=== PATIENT | male | born 1970 | race Caucasian/White ===

== ENCOUNTER 2019-04-14 14:49 | Inpatient (IN) | payer BC ==
[2019-04-14] MEDS ORDERED: Sodium Chloride 0.9% 2.5 ML Syringe FLUSH PRN (15:15)
[2019-04-14] MEDS ORDERED: Sodium Chloride 0.9% 10 ML Syringe FLUSH PRN (15:15)
--- NOTE | 2019-04-14 15:30 | EDM.PDOC ---
ED HPI GENERAL MEDICAL PROBLEM - General Chief Complaint: Abdominal Pain Stated Complaint: SENT FROM [facility] Time Seen by Provider: 04/14/19 15:02 Source of Information: Reports: Patient History Limitations: Reports: No Limitations - History of Present Illness INITIAL COMMENTS - FREE TEXT/NARRATIVE: HISTORY AND PHYSICAL: History of present illness: Patient is a 58-year-old male who presents to the ED today from [facility] for concern of abdominal pain. [facility] provider did call and speak with nursing staff stating that they do an abdominal and pelvic CT scan without contrast but the radiologist has not interpreted yet but they're afraid for liver failure as the liver looked enlarged to them on the image. Patient states he has been constipation and had abdominal pain 10 days. Patient states he's taken over the counter medication for constipation without relief of symptoms. Patient states his stomach feels more "bloated" and is hard and the skin feels as if its "sunburned". Patient states he also is not able to lean back because he feels short of breath if he does so. Patient states he does drink alcohol on occasion but over the past 2 weeks has not had anything to drink. Patient states he has been having watery diarrhea for 3 days after treating for constipation. Patient denies any other symptoms or concerns. Patient denies fever, chills, chest pain, shortness of breath, or cough. Denies headache, neck stiff ness, change in vision, syncope, or near syncope. Denies nausea, vomiting, or dysuria. Has not noted any blood in urine or stool. Patient has been eating and drinking appropriately. Review of systems: As per history of present illness and below otherwise all systems reviewed and negative. Past medical history: As per history of present illness and as reviewed below otherwise noncontributory. Surgical history: As per history of present illness and as reviewed below otherwise noncontributory. Social history: See social history for further information Family history: As per history of present illness and as reviewed below otherwise noncontributory. Physical exam: Physical exam is limited due to body habitus. General: Patient is alert, oriented, and in no acute distress. Patient sitting comfortably on exam table. HEENT: Atraumatic, normocephalic, pupils equal and reactive bilaterally, negative for conjunctival pallor or scleral icterus, mucous membranes moist, TMs normal bilaterally, throat clear, neck supple, nontender, trachea midline. No drooling or trismus noted. No meningeal signs. No hot potato voice noted. Lungs: Clear to auscultation, breath sounds equal bilaterally, chest nontender. Heart: S1S2, regular rate and rhythm without overt murmur Abdomen: Obese, firm, distended, nontender. The skin overlying the abdomen is erythematous/pinkish in color with 2+ pitting edema of the abdomen. Negative for costovertebral tenderness. Patient short of breath with laying back. Pelvis: Stable nontender. Genitourinary: Deferred. Rectal: Deferred. Skin: Intact, warm, dry. No lesions or rashes noted. Extremities: Atraumatic, negative for cords or calf pain. Neurovascular unremarkable. 3+ bilateral pitting edema to the knees of the lower extremity. Neuro: Awake, alert, oriented. Cranial nerves II through XII unremarkable. Cerebellum unremarkable. Motor and sensory unremarkable throughout. Exam nonfocal. Notes: Dr. Padilla was consulted on patient and will admit to observation. Voices understanding and is agreeable to plan of care. Denies any further questions or concerns at this time. Diagnostics: CBC, CMP, UA, lipase, EKG, chest x-ray, troponin, BNP, ammonia, PT/INR, amylase , stool culture, cdiff, ova and parasite (Report from [facility] for abdominal and pelvic CT shows hepatomegaly, and a small right pleural effusion, small amount of ascites, and generalized anasarca. Otherwise no acute abnormalities) Therapeutics: Saline lock, Lasix Impression: Congestive Heart Failure, new onset Plan: 1. Admit to observation to Dr. Padilla. Definitive disposition and diagnosis as appropriate pending reevaluation and review of above. - Related Data Allergies Allergy/AdvReac Type Severity Reaction Status Date / Time No Known Allergies Allergy Verified 04/14/19 15:08 Home Meds: Home Meds . [No Known Home Meds] 04/14/19 [History] Past Medical History Endocrine/Metabolic History: Reports: Obesity/BMI 30+ Social & Family History - Family History Family Medical History: Noncontributory - Tobacco Use Smoking Status *Q: Current Every Day Smoker Years of Tobacco use: 25 Packs/Tins Daily: 1 - Recreational Drug Use Recreational Drug Use: No ED ROS GENERAL - Review of Systems Review Of Systems: ROS reveals no pertinent complaints other than HPI. ED EXAM, GENERAL - Physical Exam Exam: See Below (See dictation) Course - Vital Signs Last Recorded V/S: Last Vital Signs Temp 96.9 F 04/14/19 16:37 Pulse 91 04/14/19 16:37 Resp 20 04/14/19 16:37 BP 156/97 H 04/14/19 16:37 Pulse Ox 89 L 04/14/19 16:37 - Orders/Labs/Meds Orders: Active Orders 24 hr Category Date Time Status Admission Status [Patient Status] [ADT] Stat ADT 04/14/19 18:08 Active EKG Documentation Completion [RC] STAT Care 04/14/19 15:21 Active Oxygen Therapy, ED [RC] ASDIRECTED Care 04/14/19 16:36 Active CDIFF TOX A+B [OP] Stat Lab 04/14/19 15:33 Ordered CULTURE STOOL + CAMPY+SHIGATOX [RM] Stat Lab 04/14/19 15:33 Ordered OVA & PARASITES BY IMMUNOASSAY [MREF] Stat Lab 04/14/19 15:33 Ordered Sodium Chloride 0.9% [Saline Flush] Med 04/14/19 15:15 Active 10 ml FLUSH ASDIRECTED PRN Sodium Chloride 0.9% [Saline Flush] Med 04/14/19 15:15 Active 2.5 ml FLUSH ASDIRECTED PRN Isolation [COMM] Stat Oth 04/14/19 15:33 Ordered Saline Lock Insert [OM.PC] Stat Oth 04/14/19 15:15 Ordered Medication Orders Sodium Chloride (Saline Flush) 10 ml FLUSH ASDIRECTED PRN PRN Reason: Keep Vein Open Sodium Chloride (Saline Flush) 2.5 ml FLUSH ASDIRECTED PRN PRN Reason: Keep Vein Open Labs: Laboratory Tests 04/14/19 04/14/19 04/14/19 Range/Units 15:20 15:20 15:20 WBC 7.48 (4.0-11.0) K/uL RBC 5.23 (4.50-5.90) M/uL Hgb 15.0 (13.0-17.0) g/dL Hct 47.5 (38.0-50.0) % MCV 90.8 (80.0-98.0) fL MCH 28.7 (27.0-32.0) pg MCHC 31.6 (31.0-37.0) g/dL RDW Std Deviation 51.2 (28.0-62.0) fl RDW Coeff of Bossman 15 (11.0-15.0) % Plt Count 194 (150-400) K/uL MPV 10.00 (7.40-12.00) fL Neut % (Auto) 74.9 (48.0-80.0) % Lymph % (Auto) 15.2 L (16.0-40.0) % Eddy % (Auto) 8.3 (0.0-15.0) % Eos % (Auto) 1.2 (0.0-7.0) % Baso % (Auto) 0.4 (0.0-1.5) % Neut # (Auto) 5.6 (1.4-5.7) K/uL Lymph # (Auto) 1.1 (0.6-2.4) K/uL Eddy # (Auto) 0.6 (0.0-0.8) K/uL Eos # (Auto) 0.1 (0.0-0.7) K/uL Baso # (Auto) 0.0 (0.0-0.1) K/uL Nucleated RBC % 0.0 /100WBC Nucleated RBCs # 0 K/uL INR 1.04 Sodium 143 (136-148) mmol/L Potassium 3.9 (3.5-5.1) mmol/L Chloride 102 (98-107) mmol/L Carbon Dioxide 33.8 H (21.0-32.0) mmol/L BUN 12 (7.0-18.0) mg/dL Creatinine 1.1 (0.8-1.3) mg/dL Est Cr Clr Drug Dosing 97.09 mL/min Estimated GFR (MDRD) > 60.0 ml/min Glucose 89 (74-106) mg/dL Calcium 8.4 L (8.5-10.1) mg/dL Total Bilirubin 0.5 (0.2-1.0) mg/dL AST 21 (15-37) IU/L ALT 21 (14-63) IU/L Alkaline Phosphatase 109 (46-116) U/L Ammonia (19-54) ug/dL Troponin I (0.000-0.056) ng/mL B-Natriuretic Peptide (<100) PG/ML Total Protein 6.6 (6.4-8.2) g/dL Albumin 3.1 L (3.4-5.0) g/dL Globulin 3.5 (2.6-4.0) g/dL Albumin/Globulin Ratio 0.9 (0.9-1.6) Amylase 25 (25-115) U/L Lipase 78 (73-393) U/L Urine Color Urine Appearance Urine pH (5.0-8.0) Ur Specific Central (1.001-1.035) Urine Protein (NEGATIVE) mg/dL Urine Glucose (UA) (NEGATIVE) mg/dL Urine Ketones (NEGATIVE) mg/dL Urine Occult Blood (NEGATIVE) Urine Nitrite (NEGATIVE) Urine Bilirubin (NEGATIVE) Urine Urobilinogen (<2.0) EU/dL Ur Leukocyte Esterase (NEGATIVE) Urine RBC (0-2/HPF) Urine WBC (0-5/HPF) Ur Epithelial Cells (NONE-FEW) Urine Bacteria (NEGATIVE) 04/14/19 04/14/19 04/14/19 Range/Units 15:20 15:20 15:20 WBC (4.0-11.0) K/uL RBC (4.50-5.90) M/uL Hgb (13.0-17.0) g/dL Hct (38.0-50.0) % MCV (80.0-98.0) fL MCH (27.0-32.0) pg MCHC (31.0-37.0) g/dL RDW Std Deviation (28.0-62.0) fl RDW Coeff of Bossman (11.0-15.0) % Plt Count (150-400) K/uL MPV (7.40-12.00) fL Neut % (Auto) (48.0-80.0) % Lymph % (Auto) (16.0-40.0) % Eddy % (Auto) (0.0-15.0) % Eos % (Auto) (0.0-7.0) % Baso % (Auto) (0.0-1.5) % Neut # (Auto) (1.4-5.7) K/uL Lymph # (Auto) (0.6-2.4) K/uL Eddy # (Auto) (0.0-0.8) K/uL Eos # (Auto) (0.0-0.7) K/uL Baso # (Auto) (0.0-0.1) K/uL Nucleated RBC % /100WBC Nucleated RBCs # K/uL INR Sodium (136-148) mmol/L Potassium (3.5-5.1) mmol/L Chloride (98-107) mmol/L Carbon Dioxide (21.0-32.0) mmol/L BUN (7.0-18.0) mg/dL Creatinine (0.8-1.3) mg/dL Est Cr Clr Drug Dosing mL/min Estimated GFR (MDRD) ml/min Glucose (74-106) mg/dL Calcium (8.5-10.1) mg/dL Total Bilirubin (0.2-1.0) mg/dL AST (15-37) IU/L ALT (14-63) IU/L Alkaline Phosphatase (46-116) U/L Ammonia 43 (19-54) ug/dL Troponin I < 0.050 (0.000-0.056) ng/mL B-Natriuretic Peptide 488 H (<100) PG/ML Total Protein (6.4-8.2) g/dL Albumin (3.4-5.0) g/dL Globulin (2.6-4.0) g/dL Albumin/Globulin Ratio (0.9-1.6) Amylase (25-115) U/L Lipase (73-393) U/L Urine Color Urine Appearance Urine pH (5.0-8.0) Ur Specific Central (1.001-1.035) Urine Protein (NEGATIVE) mg/dL Urine Glucose (UA) (NEGATIVE) mg/dL Urine Ketones (NEGATIVE) mg/dL Urine Occult Blood (NEGATIVE) Urine Nitrite (NEGATIVE) Urine Bilirubin (NEGATIVE) Urine Urobilinogen (<2.0) EU/dL Ur Leukocyte Esterase (NEGATIVE) Urine RBC (0-2/HPF) Urine WBC (0-5/HPF) Ur Epithelial Cells (NONE-FEW) Urine Bacteria (NEGATIVE) 04/14/19 Range/Units 16:51 WBC (4.0-11.0) K/uL RBC (4.50-5.90) M/uL Hgb (13.0-17.0) g/dL Hct (38.0-50.0) % MCV (80.0-98.0) fL MCH (27.0-32.0) pg MCHC (31.0-37.0) g/dL RDW Std Deviation (28.0-62.0) fl RDW Coeff of Bossman (11.0-15.0) % Plt Count (150-400) K/uL MPV (7.40-12.00) fL Neut % (Auto) (48.0-80.0) % Lymph % (Auto) (16.0-40.0) % Eddy % (Auto) (0.0-15.0) % Eos % (Auto) (0.0-7.0) % Baso % (Auto) (0.0-1.5) % Neut # (Auto) (1.4-5.7) K/uL Lymph # (Auto) (0.6-2.4) K/uL Eddy # (Auto) (0.0-0.8) K/uL Eos # (Auto) (0.0-0.7) K/uL Baso # (Auto) (0.0-0.1) K/uL Nucleated RBC % /100WBC Nucleated RBCs # K/uL INR Sodium (136-148) mmol/L Potassium (3.5-5.1) mmol/L Chloride (98-107) mmol/L Carbon Dioxide (21.0-32.0) mmol/L BUN (7.0-18.0) mg/dL Creatinine (0.8-1.3) mg/dL Est Cr Clr Drug Dosing mL/min Estimated GFR (MDRD) ml/min Glucose (74-106) mg/dL Calcium (8.5-10.1) mg/dL Total Bilirubin (0.2-1.0) mg/dL AST (15-37) IU/L ALT (14-63) IU/L Alkaline Phosphatase (46-116) U/L Ammonia (19-54) ug/dL Troponin I (0.000-0.056) ng/mL B-Natriuretic Peptide (<100) PG/ML Total Protein (6.4-8.2) g/dL Albumin (3.4-5.0) g/dL Globulin (2.6-4.0) g/dL Albumin/Globulin Ratio (0.9-1.6) Amylase (25-115) U/L Lipase (73-393) U/L Urine Color YELLOW Urine Appearance CLEAR Urine pH 7.5 (5.0-8.0) Ur Specific Central 1.010 (1.001-1.035) Urine Protein 30 H (NEGATIVE) mg/dL Urine Glucose (UA) NEGATIVE (NEGATIVE) mg/dL Urine Ketones NEGATIVE (NEGATIVE) mg/dL Urine Occult Blood NEGATIVE (NEGATIVE) Urine Nitrite NEGATIVE (NEGATIVE) Urine Bilirubin NEGATIVE (NEGATIVE) Urine Urobilinogen 1.0 (<2.0) EU/dL Ur Leukocyte Esterase NEGATIVE (NEGATIVE) Urine RBC 0-1 (0-2/HPF) Urine WBC 0-2 (0-5/HPF) Ur Epithelial Cells RARE (NONE-FEW) Urine Bacteria RARE (NEGATIVE) Meds: Medications Generic Name Dose Route Start Last Admin Trade Name Freq PRN Reason Stop Dose Admin Sodium Chloride 10 ml 04/14/19 15:15 Saline Flush FLUSH ASDIRECTED PRN Keep Vein Open Sodium Chloride 2.5 ml 04/14/19 15:15 Saline Flush FLUSH ASDIRECTED PRN Keep Vein Open Discontinued Medications Generic Name Dose Route Start Last Admin Trade Name Freq PRN Reason Stop Dose Admin Furosemide 40 mg 04/14/19 16:27 04/14/19 16:43 Lasix IVPUSH 04/14/19 16:28 40 mg NOW ONE Administration Departure - Departure Time of Disposition: 18:09 Disposition: Admitted As Inpatient 65 Clinical Impression: New onset of congestive heart failure - Discharge Information Referrals: PCP,Unknown [Primary Care Provider] - Forms: ED Department Discharge - My Orders Last 24 Hours: My Active Orders 04/14/19 15:15 Sodium Chloride 0.9% [Saline Flush] 10 ml FLUSH ASDIRECTED PRN Sodium Chloride 0.9% [Saline Flush] 2.5 ml FLUSH ASDIRECTED PRN Saline Lock Insert [OM.PC] Stat 04/14/19 15:21 EKG Documentation Completion [RC] STAT 04/14/19 15:33 CDIFF TOX A+B [OP] Stat CULTURE STOOL + CAMPY+SHIGATOX [RM] Stat OVA & PARASITES BY IMMUNOASSAY [MREF] Stat Isolation [COMM] Stat 04/14/19 16:36 Oxygen Therapy, ED [RC] ASDIRECTED 04/14/19 18:08 Admission Status [Patient Status] [ADT] Stat - Assessment/Plan Last 24 Hours: My Active Orders 04/14/19 15:15 Sodium Chloride 0.9% [Saline Flush] 10 ml FLUSH ASDIRECTED PRN Sodium Chloride 0.9% [Saline Flush] 2.5 ml FLUSH ASDIRECTED PRN Saline Lock Insert [OM.PC] Stat 04/14/19 15:21 EKG Documentation Completion [RC] STAT 04/14/19 15:33 CDIFF TOX A+B [OP] Stat CULTURE STOOL + CAMPY+SHIGATOX [RM] Stat OVA & PARASITES BY IMMUNOASSAY [MREF] Stat Isolation [COMM] Stat 04/14/19 16:36 Oxygen Therapy, ED [] ASDIRECTED 04/14/19 18:08 Admission Status [Patient Status] [ADT] Stat
[2019-04-14 16:06] LABS: BLOOD UREA NITROGEN,BUN 12 mg/dL (7.0-18.0); CARBON DIOXIDE,CO2 33.8 mmol/L (21.0-32.0); CHLORIDE,CL 102 mmol/L (98-107); GLUCOSE RANDOM 89 mg/dL (74-106); LIPASE 78 U/L (73-393); POTASSIUM,K 3.9 mmol/L (3.5-5.1); SODIUM,NA 143 mmol/L (136-148)
[2019-04-14] MEDS ORDERED: Furosemide 40 MG/4 ML VIAL IVPUSH ONE (16:27)
--- NOTE | 2019-04-14 17:00 | CR ---
Chest: Portable view of the chest was obtained. Comparison: No previous chest x-ray. Heart size is somewhat enlarged. Pulmonary vessels are felt to be congested. Bony structures are unremarkable. Impression: Findings suspicious for early CHF. Diagnostic code #3 MTDD
[2019-04-14] MEDS ORDERED: Albuterol/Ipratropium 3.0-0.5 MG/3 ML Neb Soln NEB PRN (18:21)
[2019-04-14] MEDS ORDERED: Metoprolol Succinate 50 MG Tab.ER PO SCH (18:45)
--- NOTE | 2019-04-14 18:48 | PCM.HP.2 ---
H&P History of Present Illness - General Date of Service: 04/14/19 Admit Problem/Dx: Admission Diagnosis/Problem Admission Diagnosis/Problem Congestive heart failure Source of Information: Patient - History of Present Illness Initial Comments - Free Text/Narative: Patient is a 58-year-old male with no known PMH who presents to the ED today from [facility] for concern of abdominal pain. Patient had gotten Abdominal CT done in clinic but the final report was pending. Patient was sent to ER for further assessment due to concern of possible "liver failure". Patient states he has been constipation and had abdominal distension 10 days. Patient took OTC stool softeners for constipation with some relief of symptoms. Patient states his stomach feels more "bloated" and that he has gained 10lbs in last 2 weeks. patient also feel THOMAS and Orthopnea and his belly feel really tense and hard but no acute pain. Denied alcohol abuse, no drug abuse. Does smoke 1PPD. CXR was obtained which showed Volume overload. BP was elevated in 170s in ER. EKG didn't show as St or T wave changes. 1st set of Trops was negative. Patient denied chest pain, dizziness, N/V, fever, chills, urinary symptoms, Focal neurological deficits. Patient is being admitted for further management. Onset of Symptoms: Reports: Gradual Duration of Symptoms: Reports: Week(s): Location: Reports: Abdomen - Related Data Allergies/Adverse Reactions: Allergies Allergy/AdvReac Type Severity Reaction Status Date / Time cat dander Allergy Mild Rash Verified 04/14/19 19:40 horse dander Allergy Mild Rash Verified 04/14/19 19:40 Home Medications: Home Meds . [No Known Home Meds] 04/14/19 [History] Past Medical History Endocrine/Metabolic History: Reports: Obesity/BMI 30+ Social & Family History - Family History Family Medical History: Noncontributory - Tobacco Use Smoking Status *Q: Current Every Day Smoker Years of Tobacco use: 25 Packs/Tins Daily: 1 - Recreational Drug Use Recreational Drug Use: No H&P Review of Systems - Review of Systems: Review Of Systems: ROS reveals no pertinent complaints other than HPI. Exam - Exam Exam: See Below - Vital Signs Vital Signs: Last Vital Signs Temp 35.9 C 04/14/19 18:24 Pulse 95 04/14/19 18:24 Resp 20 04/14/19 18:24 BP 154/97 H 04/14/19 18:24 Pulse Ox 93 L 04/14/19 18:24 Weight: 176.901 kg - Exam Quality Assessment: Supplemental Oxygen General: Alert, Oriented, Cooperative HEENT: Conjunctiva Clear Neck: Supple, Trachea Midline Lungs: Decreased Breath Sounds, Crackles Cardiovascular: Regular Rate, Regular Rhythm, Normal S1, Normal S2 GI/Abdominal Exam: Distended, Abnormal Bowel Sounds. No: Normal Bowel Sounds, Soft, Rebound, Tender Extremities: Pedal Edema Peripheral Pulses: 3+: Dorsalis Pedis (L), Dorsalis Pedis (R) - Patient Data Lab Results Last 24 hrs: Laboratory Results - last 24 hr 04/14/19 04/14/19 04/14/19 Range/Units 15:20 15:20 15:20 WBC 7.48 (4.0-11.0) K/uL RBC 5.23 (4.50-5.90) M/uL Hgb 15.0 (13.0-17.0) g/dL Hct 47.5 (38.0-50.0) % MCV 90.8 (80.0-98.0) fL MCH 28.7 (27.0-32.0) pg MCHC 31.6 (31.0-37.0) g/dL RDW Std Deviation 51.2 (28.0-62.0) fl RDW Coeff of [place] 15 (11.0-15.0) % Plt Count 194 (150-400) K/uL MPV 10.00 (7.40-12.00) fL Neut % (Auto) 74.9 (48.0-80.0) % Lymph % (Auto) 15.2 L (16.0-40.0) % [place] % (Auto) 8.3 (0.0-15.0) % Eos % (Auto) 1.2 (0.0-7.0) % Baso % (Auto) 0.4 (0.0-1.5) % Neut # (Auto) 5.6 (1.4-5.7) K/uL Lymph # (Auto) 1.1 (0.6-2.4) K/uL [place] # (Auto) 0.6 (0.0-0.8) K/uL Eos # (Auto) 0.1 (0.0-0.7) K/uL Baso # (Auto) 0.0 (0.0-0.1) K/uL Nucleated RBC % 0.0 /100WBC Nucleated RBCs # 0 K/uL INR 1.04 Sodium 143 (136-148) mmol/L Potassium 3.9 (3.5-5.1) mmol/L Chloride 102 (98-107) mmol/L Carbon Dioxide 33.8 H (21.0-32.0) mmol/L BUN 12 (7.0-18.0) mg/dL Creatinine 1.1 (0.8-1.3) mg/dL Est Cr Clr Drug Dosing 97.09 mL/min Estimated GFR (MDRD) > 60.0 ml/min Glucose 89 (74-106) mg/dL Calcium 8.4 L (8.5-10.1) mg/dL Total Bilirubin 0.5 (0.2-1.0) mg/dL AST 21 (15-37) IU/L ALT 21 (14-63) IU/L Alkaline Phosphatase 109 (46-116) U/L Ammonia (19-54) ug/dL Troponin I (0.000-0.056) ng/mL B-Natriuretic Peptide (<100) PG/ML Total Protein 6.6 (6.4-8.2) g/dL Albumin 3.1 L (3.4-5.0) g/dL Globulin 3.5 (2.6-4.0) g/dL Albumin/Globulin Ratio 0.9 (0.9-1.6) Amylase 25 (25-115) U/L Lipase 78 (73-393) U/L Urine Color Urine Appearance Urine pH (5.0-8.0) Ur Specific [place] (1.001-1.035) Urine Protein (NEGATIVE) mg/dL Urine Glucose (UA) (NEGATIVE) mg/dL Urine Ketones (NEGATIVE) mg/dL Urine Occult Blood (NEGATIVE) Urine Nitrite (NEGATIVE) Urine Bilirubin (NEGATIVE) Urine Urobilinogen (<2.0) EU/dL Ur Leukocyte Esterase (NEGATIVE) Urine RBC (0-2/HPF) Urine WBC (0-5/HPF) Ur Epithelial Cells (NONE-FEW) Urine Bacteria (NEGATIVE) 04/14/19 04/14/19 04/14/19 Range/Units 15:20 15:20 15:20 WBC (4.0-11.0) K/uL RBC (4.50-5.90) M/uL Hgb (13.0-17.0) g/dL Hct (38.0-50.0) % MCV (80.0-98.0) fL MCH (27.0-32.0) pg MCHC (31.0-37.0) g/dL RDW Std Deviation (28.0-62.0) fl RDW Coeff of [place] (11.0-15.0) % Plt Count (150-400) K/uL MPV (7.40-12.00) fL Neut % (Auto) (48.0-80.0) % Lymph % (Auto) (16.0-40.0) % [place] % (Auto) (0.0-15.0) % Eos % (Auto) (0.0-7.0) % Baso % (Auto) (0.0-1.5) % Neut # (Auto) (1.4-5.7) K/uL Lymph # (Auto) (0.6-2.4) K/uL [place] # (Auto) (0.0-0.8) K/uL Eos # (Auto) (0.0-0.7) K/uL Baso # (Auto) (0.0-0.1) K/uL Nucleated RBC % /100WBC Nucleated RBCs # K/uL INR Sodium (136-148) mmol/L Potassium (3.5-5.1) mmol/L Chloride (98-107) mmol/L Carbon Dioxide (21.0-32.0) mmol/L BUN (7.0-18.0) mg/dL Creatinine (0.8-1.3) mg/dL Est Cr Clr Drug Dosing mL/min Estimated GFR (MDRD) ml/min Glucose (74-106) mg/dL Calcium (8.5-10.1) mg/dL Total Bilirubin (0.2-1.0) mg/dL AST (15-37) IU/L ALT (14-63) IU/L Alkaline Phosphatase (46-116) U/L Ammonia 43 (19-54) ug/dL Troponin I < 0.050 (0.000-0.056) ng/mL B-Natriuretic Peptide 488 H (<100) PG/ML Total Protein (6.4-8.2) g/dL Albumin (3.4-5.0) g/dL Globulin (2.6-4.0) g/dL Albumin/Globulin Ratio (0.9-1.6) Amylase (25-115) U/L Lipase (73-393) U/L Urine Color Urine Appearance Urine pH (5.0-8.0) Ur Specific [place] (1.001-1.035) Urine Protein (NEGATIVE) mg/dL Urine Glucose (UA) (NEGATIVE) mg/dL Urine Ketones (NEGATIVE) mg/dL Urine Occult Blood (NEGATIVE) Urine Nitrite (NEGATIVE) Urine Bilirubin (NEGATIVE) Urine Urobilinogen (<2.0) EU/dL Ur Leukocyte Esterase (NEGATIVE) Urine RBC (0-2/HPF) Urine WBC (0-5/HPF) Ur Epithelial Cells (NONE-FEW) Urine Bacteria (NEGATIVE) 04/14/19 Range/Units 16:51 WBC (4.0-11.0) K/uL RBC (4.50-5.90) M/uL Hgb (13.0-17.0) g/dL Hct (38.0-50.0) % MCV (80.0-98.0) fL MCH (27.0-32.0) pg MCHC (31.0-37.0) g/dL RDW Std Deviation (28.0-62.0) fl RDW Coeff of [place] (11.0-15.0) % Plt Count (150-400) K/uL MPV (7.40-12.00) fL Neut % (Auto) (48.0-80.0) % Lymph % (Auto) (16.0-40.0) % [place] % (Auto) (0.0-15.0) % Eos % (Auto) (0.0-7.0) % Baso % (Auto) (0.0-1.5) % Neut # (Auto) (1.4-5.7) K/uL Lymph # (Auto) (0.6-2.4) K/uL [place] # (Auto) (0.0-0.8) K/uL Eos # (Auto) (0.0-0.7) K/uL Baso # (Auto) (0.0-0.1) K/uL Nucleated RBC % /100WBC Nucleated RBCs # K/uL INR Sodium (136-148) mmol/L Potassium (3.5-5.1) mmol/L Chloride (98-107) mmol/L Carbon Dioxide (21.0-32.0) mmol/L BUN (7.0-18.0) mg/dL Creatinine (0.8-1.3) mg/dL Est Cr Clr Drug Dosing mL/min Estimated GFR (MDRD) ml/min Glucose (74-106) mg/dL Calcium (8.5-10.1) mg/dL Total Bilirubin (0.2-1.0) mg/dL AST (15-37) IU/L ALT (14-63) IU/L Alkaline Phosphatase (46-116) U/L Ammonia (19-54) ug/dL Troponin I (0.000-0.056) ng/mL B-Natriuretic Peptide (<100) PG/ML Total Protein (6.4-8.2) g/dL Albumin (3.4-5.0) g/dL Globulin (2.6-4.0) g/dL Albumin/Globulin Ratio (0.9-1.6) Amylase (25-115) U/L Lipase (73-393) U/L Urine Color YELLOW Urine Appearance CLEAR Urine pH 7.5 (5.0-8.0) Ur Specific [place] 1.010 (1.001-1.035) Urine Protein 30 H (NEGATIVE) mg/dL Urine Glucose (UA) NEGATIVE (NEGATIVE) mg/dL Urine Ketones NEGATIVE (NEGATIVE) mg/dL Urine Occult Blood NEGATIVE (NEGATIVE) Urine Nitrite NEGATIVE (NEGATIVE) Urine Bilirubin NEGATIVE (NEGATIVE) Urine Urobilinogen 1.0 (<2.0) EU/dL Ur Leukocyte Esterase NEGATIVE (NEGATIVE) Urine RBC 0-1 (0-2/HPF) Urine WBC 0-2 (0-5/HPF) Ur Epithelial Cells RARE (NONE-FEW) Urine Bacteria RARE (NEGATIVE) Result Diagrams: 04/14/19 15:20 04/14/19 15:20 *Q Meaningful Use (ADM) - VTE Risk Assess *Q Each Risk Factor Represents 1 Point: Age 41 - 59 years, Congestive heart failure (CHF) Total Score 1 Point Risk Factors: 2 - Problem List (1) Volume overload SNOMED Code(s): 82729315 ICD Code: E87.70 - FLUID OVERLOAD, UNSPECIFIED Status: Acute Current Visit: Yes (2) HTN (hypertension) SNOMED Code(s): 45108229 ICD Code: I10 - ESSENTIAL (PRIMARY) HYPERTENSION Status: Acute Current Visit: Yes Problem List Initiated/Reviewed/Updated: Yes Orders Last 24hrs: Active Orders 24 hr Category Date Time Status Admission Status [Patient Status] [ADT] Stat ADT 04/14/19 18:08 Active Ambulate [RC] ASDIRECTED Care 04/14/19 18:21 Ordered Cardiac Education [RC] Click to Edit Care 04/14/19 18:41 Ordered EKG Documentation Completion [RC] STAT Care 04/14/19 15:21 Active Oxygen Therapy [RC] PRN Care 04/14/19 18:21 Ordered Oxygen Therapy, ED [RC] ASDIRECTED Care 04/14/19 16:36 Active RT Aerosol Therapy [RC] ASDIRECTED Care 04/14/19 18:24 Ordered VTE/DVT Education [RC] PER UNIT ROUTINE Care 04/14/19 18:21 Ordered Vital Signs [RC] Q4H Care 04/14/19 18:21 Ordered Consult to Nail Feeder [CONS] Routine Cons 04/14/19 18:21 Ordered Heart Healthy Diet [DIET] Diet 04/14/19 Dinner Ordered Echo 2D wo Cont [US] Urgent Exams 04/14/19 18:30 Ordered B-TYPE NATRIURETIC PEPTIDE,BNP [CHEM] AM Lab 04/15/19 05:11 Ordered CDIFF TOX A+B [OP] Stat Lab 04/14/19 15:33 Ordered CULTURE STOOL + CAMPY+SHIGATOX [RM] Stat Lab 04/14/19 15:33 Ordered GLYCOSYLATED HEMOGLOBIN,HGBA1C [CHEM] AM Lab 04/15/19 05:11 Ordered INR,PT,PROTHROMBIN TIME [COAG] AM Lab 04/15/19 05:11 Ordered LIPID PANEL [CHEM] AM Lab 04/15/19 05:11 Ordered MAGNESIUM [CHEM] Routine Lab 04/15/19 05:11 Ordered OVA & PARASITES BY IMMUNOASSAY [MREF] Stat Lab 04/14/19 15:33 Ordered TROPONIN I [CHEM] Routine Lab 04/14/19 18:41 Ordered TROPONIN I [CHEM] Routine Lab 04/14/19 22:00 Ordered TSH [CHEM] Stat Lab 04/14/19 18:38 Ordered Albuterol/Ipratropium [DuoNeb 3.0-0.5 MG/3 ML] Med 04/14/19 18:21 Active 3 ml NEB Q4HRRT PRN Aspirin Med 04/14/19 21:00 Ordered 81 mg PO BEDTIME Furosemide [Lasix] Med 04/15/19 01:00 Active 40 mg IVPUSH TID Heparin Sodium Med 04/14/19 18:30 Active 5,000 units SUBCUT Q8H Metoprolol Succinate [Toprol XL] Med 04/14/19 18:45 Ordered 50 mg PO DAILY Sodium Chloride 0.9% [Saline Flush] Med 04/14/19 15:15 Active 10 ml FLUSH ASDIRECTED PRN Sodium Chloride 0.9% [Saline Flush] Med 04/14/19 15:15 Active 2.5 ml FLUSH ASDIRECTED PRN atorvaSTATin [Lipitor] Med 04/14/19 21:00 Ordered 40 mg PO BEDTIME Beta Igor Contraindications [AST] Click To Edit Oth 04/14/19 18:41 Ordered Isolation [COMM] Stat Oth 04/14/19 15:33 Ordered Saline Lock Insert [OM.PC] Stat Oth 04/14/19 15:15 Ordered Resuscitation Status Routine Resus Stat 04/14/19 18:21 Ordered Medication Orders Albuterol/Ipratropium (Duoneb 3.0-0.5 Mg/3 Ml) 3 ml NEB Q4HRRT PRN PRN Reason: Shortness Of Breath/wheezing Aspirin (Aspirin) 81 mg PO BEDTIME RICARDO Atorvastatin Calcium (Lipitor) 40 mg PO BEDTIME RICARDO Furosemide (Lasix) 40 mg IVPUSH TID RICARDO Heparin Sodium (Porcine) (Heparin Sodium) 5,000 units SUBCUT Q8H RICARDO Metoprolol Succinate (Toprol Xl) 50 mg PO DAILY RICARDO Sodium Chloride (Saline Flush) 10 ml FLUSH ASDIRECTED PRN PRN Reason: Keep Vein Open Sodium Chloride (Saline Flush) 2.5 ml FLUSH ASDIRECTED PRN PRN Reason: Keep Vein Open Assessment/Plan Comment:: Patient came in with c/o generalized swelling, weight gain, orthopnea Was sent over from a local clinic due to concern of "liver failure" due to his distended abdomen Patients EKG didn't show any ST or T wave changes 1st Trop was negative LFTs normal CXR was significant for volume overload Patient is being admitted for volume overload likely due to New-onset CHF Start IV Lasix 40 TID for aggressive diureses obtain 2D ECHO Obtain TSH, Lipid profile, HbA1c Monitor ins and out Fluid restriction to 1L Monitor and replete electrolytes as needed
[2019-04-14] MEDS: Heparin Sodium 5,000 Units/ML Vial SUBCUT SCH (20:09)
[2019-04-14] MEDS: Aspirin 81 MG Tab.Chew PO SCH (20:09)
[2019-04-14] MEDS: atorvaSTATin 40 MG Tab PO SCH (20:09)
[2019-04-14] MEDS ORDERED: Furosemide 40 MG/4 ML VIAL IVPUSH SCH (22:00)
[2019-04-15] MEDS: Heparin Sodium 5,000 Units/ML Vial SUBCUT SCH ×3 (01:32→21:39)
[2019-04-15] MEDS: Furosemide 40 MG/4 ML VIAL IVPUSH SCH ×4 (01:32→21:43)
[2019-04-15 04:47] LABS: HEMOGLOBIN A1C 6.1 % (4.5-6.2)
[2019-04-15 04:52] LABS: CARBON DIOXIDE,CO2 34.7 mmol/L (21.0-32.0); POTASSIUM,K 4.4 mmol/L (3.5-5.1)
--- NOTE | 2019-04-15 05:05 | CR ---
INDICATION: Shortness of breath, increased oxygen demand TECHNIQUE: Chest radiograph 1 view COMPARISON: None FINDINGS: Severe degradation of image quality noted due to body habitus. Mediastinum: The mediastinum is normal in appearance. Moderate cardiomegaly is noted. Lung: Perihilar ground-glass opacities are present with vascular congestion seen. No sign of pleural effusion seen. No pneumothorax is identified. Bone and Soft tissue: Unremarkable for age. IMPRESSIONS: 1. Perihilar ground-glass opacities are present with vascular congestion seen. Findings likely due to mild pulmonary edema. 2. Moderate cardiomegaly is noted. Dictated by Josue Almanzar MD @ 04/15/2019 5:03:58 AM Dictated by: Josue Almanzar MD @ 04/15/2019 05:04:01 (Electronically Signed)
--- NOTE | 2019-04-15 06:41 | PN ---
[facility] Physician - Brief Progress [id number]/15/2019 06:25[facility] [place], [place] - MWN (PAMELA) - JULIÁN LEOSADITI VARGASDate of Service 04/15/2019 06:25HPI/Event s of Note Chart reviewed. On camera, the patient is lying in bed in NAD, on face mask, no tachypnea, no accessory resptratory muscle use. Mr Vargas is a 48 yr old man presenting with abdominal pain and constipation to an outpatient clinic. CT was ordered and then pt trsf to [facility] with possible liver failure (subsequent labs shwoed normal liver function). In the ED, he was hypertensive SBP 170 s and further history revealed THOMAS and orthopnea, as well as LE edema - unclear duration, as well as increased abdominal girth and vince gain 10 lbs over the past 2 weeks. He was started on diuretics an d admitted to meds-surg floor. However overnight he appeared more dyspneic and was trsf to the ICU.PM H: no known chronic medical problems. He is obese and smokes.Investigations reviewed - pertinent: BMP bicarb 34.7, Cre 1.1 - 1.4. CBC unremarkable, LFTs unremarkable.BNP 488. Trop neg x2C dif neg, camp ylobacter neg.CxR: difficult to interpret due to body habitus. Mild pulmonary vascular congesiton, wi th possible small b/l pleural effusion (vs body habitus) on CxR from 04/15/19.A/P:1. Hypoxemic respir atory failure, likely due to new onset CHF with pulmonary edemaAggressive diuresis, while monitoring Cre and electrolytes.2DEcho in Am.Started on ASA, beta-susi, statin.Watch BP and watch for any sig n/symptoms of decompensation of CHF given new start of beta-susi.2. AKIFollow Cre and electrolytes .Would hold off on ACEinh or ARB for now until Cre stabilizes.3. HTNLikely has had chronic hypertensi on for some time, undiagnosed.Is on beta susi and Lasix.Follow BP and adjust antihypertensive gabby men accordingly.4. DiarrheaLikely due to stool softeners which he took for constipation.Monitor sympt oms.5. GI/DVT prophylaxis - is on Heparin SC.6. Smoker - strongly guidance counselor against smoking an offer boogie pport measures and emdications for smoking cessation.Interventions Major-Acute renal failure - evalua tion and management, Hypertension - evaluation and management, Respiratory failure - evaluation and m anagement, Other: CHF
--- NOTE | 2019-04-15 09:22 | PCM.PN ---
- General Info Date of Service: 04/15/19 - Review of Systems Systems Review Comment:: shortness of breath improving - Patient Data Vitals - Most Recent: Last Vital Signs Temp 37.4 C 04/15/19 08:00 Pulse 83 04/15/19 07:00 Resp 16 04/15/19 09:00 BP 132/64 04/15/19 09:00 Pulse Ox 94 L 04/15/19 09:00 Weight - Most Recent: 176.901 kg I&O - Last 24 Hours: Intake & Output 04/14/19 04/15/19 04/15/19 22:59 06:59 14:59 Intake Total 3000 Output Total 1075 Balance 1925 Lab Results Last 24 Hours: Laboratory Results - last 24 hr 04/14/19 04/14/19 04/14/19 Range/Units 15:20 15:20 15:20 WBC 7.48 (4.0-11.0) K/uL RBC 5.23 (4.50-5.90) M/uL Hgb 15.0 (13.0-17.0) g/dL Hct 47.5 (38.0-50.0) % MCV 90.8 (80.0-98.0) fL MCH 28.7 (27.0-32.0) pg MCHC 31.6 (31.0-37.0) g/dL RDW Std Deviation 51.2 (28.0-62.0) fl RDW Coeff of Bossman 15 (11.0-15.0) % Plt Count 194 (150-400) K/uL MPV 10.00 (7.40-12.00) fL Neut % (Auto) 74.9 (48.0-80.0) % Lymph % (Auto) 15.2 L (16.0-40.0) % Harlan % (Auto) 8.3 (0.0-15.0) % Eos % (Auto) 1.2 (0.0-7.0) % Baso % (Auto) 0.4 (0.0-1.5) % Neut # (Auto) 5.6 (1.4-5.7) K/uL Lymph # (Auto) 1.1 (0.6-2.4) K/uL Harlan # (Auto) 0.6 (0.0-0.8) K/uL Eos # (Auto) 0.1 (0.0-0.7) K/uL Baso # (Auto) 0.0 (0.0-0.1) K/uL Nucleated RBC % 0.0 /100WBC Nucleated RBCs # 0 K/uL INR 1.04 Sodium 143 (136-148) mmol/L Potassium 3.9 (3.5-5.1) mmol/L Chloride 102 (98-107) mmol/L Carbon Dioxide 33.8 H (21.0-32.0) mmol/L BUN 12 (7.0-18.0) mg/dL Creatinine 1.1 (0.8-1.3) mg/dL Est Cr Clr Drug Dosing 97.09 mL/min Estimated GFR (MDRD) > 60.0 ml/min Glucose 89 (74-106) mg/dL POC Glucose (60-110) mg/dL Hemoglobin A1c (4.5-6.2) % Calcium 8.4 L (8.5-10.1) mg/dL Phosphorus (2.6-4.7) mg/dL Magnesium (1.8-2.4) mg/dL Total Bilirubin 0.5 (0.2-1.0) mg/dL AST 21 (15-37) IU/L ALT 21 (14-63) IU/L Alkaline Phosphatase 109 (46-116) U/L Ammonia (19-54) ug/dL Troponin I (0.000-0.056) ng/mL B-Natriuretic Peptide (<100) PG/ML Total Protein 6.6 (6.4-8.2) g/dL Albumin 3.1 L (3.4-5.0) g/dL Globulin 3.5 (2.6-4.0) g/dL Albumin/Globulin Ratio 0.9 (0.9-1.6) Triglycerides (0-200) mg/dL Cholesterol (50-200) mg/dL LDL Cholesterol, Calc (60-180) mg/dL VLDL Cholesterol (5-55) mg/dL HDL Cholesterol (40-60) mg/dL Cholesterol/HDL Ratio (3.3-6.0) Amylase 25 (25-115) U/L Lipase 78 (73-393) U/L TSH 3rd Generation (0.36-3.74) uIU/mL Urine Color Urine Appearance Urine pH (5.0-8.0) Ur Specific [place] (1.001-1.035) Urine Protein (NEGATIVE) mg/dL Urine Glucose (UA) (NEGATIVE) mg/dL Urine Ketones (NEGATIVE) mg/dL Urine Occult Blood (NEGATIVE) Urine Nitrite (NEGATIVE) Urine Bilirubin (NEGATIVE) Urine Urobilinogen (<2.0) EU/dL Ur Leukocyte Esterase (NEGATIVE) Urine RBC (0-2/HPF) Urine WBC (0-5/HPF) Ur Epithelial Cells (NONE-FEW) Urine Bacteria (NEGATIVE) 04/14/19 04/14/19 04/14/19 Range/Units 15:20 15:20 15:20 WBC (4.0-11.0) K/uL RBC (4.50-5.90) M/uL Hgb (13.0-17.0) g/dL Hct (38.0-50.0) % MCV (80.0-98.0) fL MCH (27.0-32.0) pg MCHC (31.0-37.0) g/dL RDW Std Deviation (28.0-62.0) fl RDW Coeff of Bossman (11.0-15.0) % Plt Count (150-400) K/uL MPV (7.40-12.00) fL Neut % (Auto) (48.0-80.0) % Lymph % (Auto) (16.0-40.0) % [place] % (Auto) (0.0-15.0) % Eos % (Auto) (0.0-7.0) % Baso % (Auto) (0.0-1.5) % Neut # (Auto) (1.4-5.7) K/uL Lymph # (Auto) (0.6-2.4) K/uL [place] # (Auto) (0.0-0.8) K/uL Eos # (Auto) (0.0-0.7) K/uL Baso # (Auto) (0.0-0.1) K/uL Nucleated RBC % /100WBC Nucleated RBCs # K/uL INR Sodium (136-148) mmol/L Potassium (3.5-5.1) mmol/L Chloride (98-107) mmol/L Carbon Dioxide (21.0-32.0) mmol/L BUN (7.0-18.0) mg/dL Creatinine (0.8-1.3) mg/dL Est Cr Clr Drug Dosing mL/min Estimated GFR (MDRD) ml/min Glucose (74-106) mg/dL POC Glucose (60-110) mg/dL Hemoglobin A1c (4.5-6.2) % Calcium (8.5-10.1) mg/dL Phosphorus (2.6-4.7) mg/dL Magnesium (1.8-2.4) mg/dL Total Bilirubin (0.2-1.0) mg/dL AST (15-37) IU/L ALT (14-63) IU/L Alkaline Phosphatase (46-116) U/L Ammonia 43 (19-54) ug/dL Troponin I < 0.050 (0.000-0.056) ng/mL B-Natriuretic Peptide 488 H (<100) PG/ML Total Protein (6.4-8.2) g/dL Albumin (3.4-5.0) g/dL Globulin (2.6-4.0) g/dL Albumin/Globulin Ratio (0.9-1.6) Triglycerides (0-200) mg/dL Cholesterol (50-200) mg/dL LDL Cholesterol, Calc (60-180) mg/dL VLDL Cholesterol (5-55) mg/dL HDL Cholesterol (40-60) mg/dL Cholesterol/HDL Ratio (3.3-6.0) Amylase (25-115) U/L Lipase (73-393) U/L TSH 3rd Generation (0.36-3.74) uIU/mL Urine Color Urine Appearance Urine pH (5.0-8.0) Ur Specific [place] (1.001-1.035) Urine Protein (NEGATIVE) mg/dL Urine Glucose (UA) (NEGATIVE) mg/dL Urine Ketones (NEGATIVE) mg/dL Urine Occult Blood (NEGATIVE) Urine Nitrite (NEGATIVE) Urine Bilirubin (NEGATIVE) Urine Urobilinogen (<2.0) EU/dL Ur Leukocyte Esterase (NEGATIVE) Urine RBC (0-2/HPF) Urine WBC (0-5/HPF) Ur Epithelial Cells (NONE-FEW) Urine Bacteria (NEGATIVE) 04/14/19 04/14/19 04/14/19 Range/Units 15:20 16:51 19:38 WBC (4.0-11.0) K/uL RBC (4.50-5.90) M/uL Hgb (13.0-17.0) g/dL Hct (38.0-50.0) % MCV (80.0-98.0) fL MCH (27.0-32.0) pg MCHC (31.0-37.0) g/dL RDW Std Deviation (28.0-62.0) fl RDW Coeff of Bossman (11.0-15.0) % Plt Count (150-400) K/uL MPV (7.40-12.00) fL Neut % (Auto) (48.0-80.0) % Lymph % (Auto) (16.0-40.0) % [place] % (Auto) (0.0-15.0) % Eos % (Auto) (0.0-7.0) % Baso % (Auto) (0.0-1.5) % Neut # (Auto) (1.4-5.7) K/uL Lymph # (Auto) (0.6-2.4) K/uL [place] # (Auto) (0.0-0.8) K/uL Eos # (Auto) (0.0-0.7) K/uL Baso # (Auto) (0.0-0.1) K/uL Nucleated RBC % /100WBC Nucleated RBCs # K/uL INR Sodium (136-148) mmol/L Potassium (3.5-5.1) mmol/L Chloride (98-107) mmol/L Carbon Dioxide (21.0-32.0) mmol/L BUN (7.0-18.0) mg/dL Creatinine (0.8-1.3) mg/dL Est Cr Clr Drug Dosing mL/min Estimated GFR (MDRD) ml/min Glucose (74-106) mg/dL POC Glucose (60-110) mg/dL Hemoglobin A1c (4.5-6.2) % Calcium (8.5-10.1) mg/dL Phosphorus (2.6-4.7) mg/dL Magnesium (1.8-2.4) mg/dL Total Bilirubin (0.2-1.0) mg/dL AST (15-37) IU/L ALT (14-63) IU/L Alkaline Phosphatase (46-116) U/L Ammonia (19-54) ug/dL Troponin I < 0.050 (0.000-0.056) ng/mL B-Natriuretic Peptide (<100) PG/ML Total Protein (6.4-8.2) g/dL Albumin (3.4-5.0) g/dL Globulin (2.6-4.0) g/dL Albumin/Globulin Ratio (0.9-1.6) Triglycerides (0-200) mg/dL Cholesterol (50-200) mg/dL LDL Cholesterol, Calc (60-180) mg/dL VLDL Cholesterol (5-55) mg/dL HDL Cholesterol (40-60) mg/dL Cholesterol/HDL Ratio (3.3-6.0) Amylase (25-115) U/L Lipase (73-393) U/L TSH 3rd Generation 2.69 (0.36-3.74) uIU/mL Urine Color YELLOW Urine Appearance CLEAR Urine pH 7.5 (5.0-8.0) Ur Specific [place] 1.010 (1.001-1.035) Urine Protein 30 H (NEGATIVE) mg/dL Urine Glucose (UA) NEGATIVE (NEGATIVE) mg/dL Urine Ketones NEGATIVE (NEGATIVE) mg/dL Urine Occult Blood NEGATIVE (NEGATIVE) Urine Nitrite NEGATIVE (NEGATIVE) Urine Bilirubin NEGATIVE (NEGATIVE) Urine Urobilinogen 1.0 (<2.0) EU/dL Ur Leukocyte Esterase NEGATIVE (NEGATIVE) Urine RBC 0-1 (0-2/HPF) Urine WBC 0-2 (0-5/HPF) Ur Epithelial Cells RARE (NONE-FEW) Urine Bacteria RARE (NEGATIVE) 04/14/19 04/15/19 04/15/19 Range/Units 19:38 00:18 04:26 WBC (4.0-11.0) K/uL RBC (4.50-5.90) M/uL Hgb (13.0-17.0) g/dL Hct (38.0-50.0) % MCV (80.0-98.0) fL MCH (27.0-32.0) pg MCHC (31.0-37.0) g/dL RDW Std Deviation (28.0-62.0) fl RDW Coeff of Bossman (11.0-15.0) % Plt Count (150-400) K/uL MPV (7.40-12.00) fL Neut % (Auto) (48.0-80.0) % Lymph % (Auto) (16.0-40.0) % [place] % (Auto) (0.0-15.0) % Eos % (Auto) (0.0-7.0) % Baso % (Auto) (0.0-1.5) % Neut # (Auto) (1.4-5.7) K/uL Lymph # (Auto) (0.6-2.4) K/uL [place] # (Auto) (0.0-0.8) K/uL Eos # (Auto) (0.0-0.7) K/uL Baso # (Auto) (0.0-0.1) K/uL Nucleated RBC % /100WBC Nucleated RBCs # K/uL INR Sodium (136-148) mmol/L Potassium (3.5-5.1) mmol/L Chloride (98-107) mmol/L Carbon Dioxide (21.0-32.0) mmol/L BUN (7.0-18.0) mg/dL Creatinine (0.8-1.3) mg/dL Est Cr Clr Drug Dosing mL/min Estimated GFR (MDRD) ml/min Glucose (74-106) mg/dL POC Glucose (60-110) mg/dL Hemoglobin A1c (4.5-6.2) % Calcium (8.5-10.1) mg/dL Phosphorus (2.6-4.7) mg/dL Magnesium 2.0 (1.8-2.4) mg/dL Total Bilirubin (0.2-1.0) mg/dL AST (15-37) IU/L ALT (14-63) IU/L Alkaline Phosphatase (46-116) U/L Ammonia (19-54) ug/dL Troponin I < 0.050 (0.000-0.056) ng/mL B-Natriuretic Peptide 485 H (<100) PG/ML Total Protein (6.4-8.2) g/dL Albumin (3.4-5.0) g/dL Globulin (2.6-4.0) g/dL Albumin/Globulin Ratio (0.9-1.6) Triglycerides (0-200) mg/dL Cholesterol (50-200) mg/dL LDL Cholesterol, Calc (60-180) mg/dL VLDL Cholesterol (5-55) mg/dL HDL Cholesterol (40-60) mg/dL Cholesterol/HDL Ratio (3.3-6.0) Amylase (25-115) U/L Lipase (73-393) U/L TSH 3rd Generation (0.36-3.74) uIU/mL Urine Color Urine Appearance Urine pH (5.0-8.0) Ur Specific [place] (1.001-1.035) Urine Protein (NEGATIVE) mg/dL Urine Glucose (UA) (NEGATIVE) mg/dL Urine Ketones (NEGATIVE) mg/dL Urine Occult Blood (NEGATIVE) Urine Nitrite (NEGATIVE) Urine Bilirubin (NEGATIVE) Urine Urobilinogen (<2.0) EU/dL Ur Leukocyte Esterase (NEGATIVE) Urine RBC (0-2/HPF) Urine WBC (0-5/HPF) Ur Epithelial Cells (NONE-FEW) Urine Bacteria (NEGATIVE) 04/15/19 04/15/19 04/15/19 Range/Units 04:26 04:26 04:26 WBC (4.0-11.0) K/uL RBC (4.50-5.90) M/uL Hgb (13.0-17.0) g/dL Hct (38.0-50.0) % MCV (80.0-98.0) fL MCH (27.0-32.0) pg MCHC (31.0-37.0) g/dL RDW Std Deviation (28.0-62.0) fl RDW Coeff of Bossman (11.0-15.0) % Plt Count (150-400) K/uL MPV (7.40-12.00) fL Neut % (Auto) (48.0-80.0) % Lymph % (Auto) (16.0-40.0) % [place] % (Auto) (0.0-15.0) % Eos % (Auto) (0.0-7.0) % Baso % (Auto) (0.0-1.5) % Neut # (Auto) (1.4-5.7) K/uL Lymph # (Auto) (0.6-2.4) K/uL [place] # (Auto) (0.0-0.8) K/uL Eos # (Auto) (0.0-0.7) K/uL Baso # (Auto) (0.0-0.1) K/uL Nucleated RBC % /100WBC Nucleated RBCs # K/uL INR 1.02 Sodium 142 (136-148) mmol/L Potassium 4.4 (3.5-5.1) mmol/L Chloride 103 (98-107) mmol/L Carbon Dioxide 34.7 H (21.0-32.0) mmol/L BUN 20 H (7.0-18.0) mg/dL Creatinine 1.4 H (0.8-1.3) mg/dL Est Cr Clr Drug Dosing 76.28 mL/min Estimated GFR (MDRD) 53.9 ml/min Glucose 110 H (74-106) mg/dL POC Glucose (60-110) mg/dL Hemoglobin A1c 6.1 (4.5-6.2) % Calcium 7.8 L (8.5-10.1) mg/dL Phosphorus 5.4 H (2.6-4.7) mg/dL Magnesium 2.0 (1.8-2.4) mg/dL Total Bilirubin (0.2-1.0) mg/dL AST (15-37) IU/L ALT (14-63) IU/L Alkaline Phosphatase (46-116) U/L Ammonia (19-54) ug/dL Troponin I (0.000-0.056) ng/mL B-Natriuretic Peptide (<100) PG/ML Total Protein (6.4-8.2) g/dL Albumin (3.4-5.0) g/dL Globulin (2.6-4.0) g/dL Albumin/Globulin Ratio (0.9-1.6) Triglycerides 104 (0-200) mg/dL Cholesterol 123 (50-200) mg/dL LDL Cholesterol, Calc 70 (60-180) mg/dL VLDL Cholesterol 20 (5-55) mg/dL HDL Cholesterol 32 L (40-60) mg/dL Cholesterol/HDL Ratio 3.8 (3.3-6.0) Amylase (25-115) U/L Lipase (73-393) U/L TSH 3rd Generation (0.36-3.74) uIU/mL Urine Color Urine Appearance Urine pH (5.0-8.0) Ur Specific [place] (1.001-1.035) Urine Protein (NEGATIVE) mg/dL Urine Glucose (UA) (NEGATIVE) mg/dL Urine Ketones (NEGATIVE) mg/dL Urine Occult Blood (NEGATIVE) Urine Nitrite (NEGATIVE) Urine Bilirubin (NEGATIVE) Urine Urobilinogen (<2.0) EU/dL Ur Leukocyte Esterase (NEGATIVE) Urine RBC (0-2/HPF) Urine WBC (0-5/HPF) Ur Epithelial Cells (NONE-FEW) Urine Bacteria (NEGATIVE) 04/15/19 04/15/19 Range/Units 04:26 04:27 WBC 6.63 (4.0-11.0) K/uL RBC 4.93 (4.50-5.90) M/uL Hgb 14.1 (13.0-17.0) g/dL Hct 45.6 (38.0-50.0) % MCV 92.5 (80.0-98.0) fL MCH 28.6 (27.0-32.0) pg MCHC 30.9 L (31.0-37.0) g/dL RDW Std Deviation 52.1 (28.0-62.0) fl RDW Coeff of Bossman 15 (11.0-15.0) % Plt Count 192 (150-400) K/uL MPV 9.80 (7.40-12.00) fL Neut % (Auto) 70.7 (48.0-80.0) % Lymph % (Auto) 16.4 (16.0-40.0) % [place] % (Auto) 9.7 (0.0-15.0) % Eos % (Auto) 2.6 (0.0-7.0) % Baso % (Auto) 0.6 (0.0-1.5) % Neut # (Auto) 4.7 (1.4-5.7) K/uL Lymph # (Auto) 1.1 (0.6-2.4) K/uL [place] # (Auto) 0.6 (0.0-0.8) K/uL Eos # (Auto) 0.2 (0.0-0.7) K/uL Baso # (Auto) 0.0 (0.0-0.1) K/uL Nucleated RBC % 0.0 /100WBC Nucleated RBCs # 0 K/uL INR Sodium (136-148) mmol/L Potassium (3.5-5.1) mmol/L Chloride (98-107) mmol/L Carbon Dioxide (21.0-32.0) mmol/L BUN (7.0-18.0) mg/dL Creatinine (0.8-1.3) mg/dL Est Cr Clr Drug Dosing mL/min Estimated GFR (MDRD) ml/min Glucose (74-106) mg/dL POC Glucose 95 (60-110) mg/dL Hemoglobin A1c (4.5-6.2) % Calcium (8.5-10.1) mg/dL Phosphorus (2.6-4.7) mg/dL Magnesium (1.8-2.4) mg/dL Total Bilirubin (0.2-1.0) mg/dL AST (15-37) IU/L ALT (14-63) IU/L Alkaline Phosphatase (46-116) U/L Ammonia (19-54) ug/dL Troponin I (0.000-0.056) ng/mL B-Natriuretic Peptide (<100) PG/ML Total Protein (6.4-8.2) g/dL Albumin (3.4-5.0) g/dL Globulin (2.6-4.0) g/dL Albumin/Globulin Ratio (0.9-1.6) Triglycerides (0-200) mg/dL Cholesterol (50-200) mg/dL LDL Cholesterol, Calc (60-180) mg/dL VLDL Cholesterol (5-55) mg/dL HDL Cholesterol (40-60) mg/dL Cholesterol/HDL Ratio (3.3-6.0) Amylase (25-115) U/L Lipase (73-393) U/L TSH 3rd Generation (0.36-3.74) uIU/mL Urine Color Urine Appearance Urine pH (5.0-8.0) Ur Specific [place] (1.001-1.035) Urine Protein (NEGATIVE) mg/dL Urine Glucose (UA) (NEGATIVE) mg/dL Urine Ketones (NEGATIVE) mg/dL Urine Occult Blood (NEGATIVE) Urine Nitrite (NEGATIVE) Urine Bilirubin (NEGATIVE) Urine Urobilinogen (<2.0) EU/dL Ur Leukocyte Esterase (NEGATIVE) Urine RBC (0-2/HPF) Urine WBC (0-5/HPF) Ur Epithelial Cells (NONE-FEW) Urine Bacteria (NEGATIVE) Abhi Results Last 24 Hours: Microbiology 04/14/19 21:00 Clostridium difficile Toxin A & B - Final Stool / Feces Negative for C.Diff Toxin/AG REFERENCE RANGE: NEGATIVE 04/14/19 21:00 Campylobacter Antigen Assay - Final Stool / Feces NEGATIVE CAMPYLOBACTER AG REFERENCE RANGE: NEGATIVE Med Orders - Current: Current Medications Albuterol/Ipratropium (Duoneb 3.0-0.5 Mg/3 Ml) 3 ml NEB Q4HRRT PRN PRN Reason: Shortness Of Breath/wheezing Last Admin: 04/15/19 03:46 Dose: 3 ml Aspirin (Aspirin) 81 mg PO BEDTIME [facility] Last Admin: 04/14/19 20:09 Dose: 81 mg Atorvastatin Calcium (Lipitor) 40 mg PO BEDTIME [facility] Last Admin: 04/14/19 20:09 Dose: 40 mg Furosemide (Lasix) 40 mg IVPUSH TID [facility] Last Admin: 04/15/19 05:08 Dose: 40 mg Heparin Sodium (Porcine) (Heparin Sodium) 5,000 units SUBCUT Q8H [facility] Last Admin: 04/15/19 01:32 Dose: 5,000 units Sodium Chloride (Saline Flush) 10 ml FLUSH ASDIRECTED PRN PRN Reason: Keep Vein Open Sodium Chloride (Saline Flush) 2.5 ml FLUSH ASDIRECTED PRN PRN Reason: Keep Vein Open Discontinued Medications Furosemide (Lasix) 40 mg IVPUSH NOW ONE Stop: 04/14/19 16:28 Last Admin: 04/14/19 16:43 Dose: 40 mg Furosemide (Lasix) 40 mg IVPUSH TID [facility] Metoprolol Succinate (Toprol Xl) 50 mg PO DAILY [facility] Last Admin: 04/14/19 20:16 Dose: 50 mg - Exam General: Alert, Oriented Lungs: Clear to Auscultation, Normal Respiratory Effort Cardiovascular: Regular Rate, Regular Rhythm GI/Abdominal Exam: Soft, Non-Tender Extremities: Other (+2 edema up to abdomen) Skin: Warm, Dry, Intact - Problem List Review Problem List Initiated/Reviewed/Updated: Yes - My Orders Last 24 Hours: My Active Orders 04/15/19 04:42 Admission Status [Patient Status] [ADT] Routine 04/15/19 Lunch Fluid Restriction [DIET] - Plan Plan:: 48 yo male admitted with anasarca. We will continue with IV lasix, with fluid restriction. Echocardiogram has been ordered.
[2019-04-15] MEDS: atorvaSTATin 40 MG Tab PO SCH (21:38)
[2019-04-15] MEDS: Aspirin 81 MG Tab.Chew PO SCH (21:39)
[2019-04-16] MEDS: Heparin Sodium 5,000 Units/ML Vial SUBCUT SCH ×3 (03:15→18:46)
[2019-04-16] MEDS: Furosemide 40 MG/4 ML VIAL IVPUSH SCH ×3 (06:43→21:00)
[2019-04-16 07:39] LABS: CARBON DIOXIDE,CO2 37.5 mmol/L (21.0-32.0); CHLORIDE,CL 102 mmol/L (98-107); GLUCOSE RANDOM 106 mg/dL (74-106); POTASSIUM,K 4.1 mmol/L (3.5-5.1); SODIUM,NA 141 mmol/L (136-148)
[2019-04-16 07:40] LABS: BLOOD UREA NITROGEN,BUN 17 mg/dL (7.0-18.0)
--- NOTE | 2019-04-16 12:50 | PCM.PN ---
- General Info Date of Service: 04/16/19 - Review of Systems Systems Review Comment:: breathing has improved, tolerated CPAP at night - Patient Data Vitals - Most Recent: Last Vital Signs Temp 36.5 C 04/16/19 12:00 Pulse 83 04/15/19 07:00 Resp 20 04/16/19 12:00 BP 132/83 04/16/19 12:00 Pulse Ox 92 L 04/16/19 12:00 Weight - Most Recent: 171.713 kg I&O - Last 24 Hours: Intake & Output 04/15/19 04/16/19 04/16/19 22:59 06:59 14:59 Intake Total 250 450 Output Total 1100 2200 Balance -850 -1750 Lab Results Last 24 Hours: Laboratory Results - last 24 hr 04/16/19 04/16/19 Range/Units 07:12 07:12 WBC 5.52 (4.0-11.0) K/uL RBC 4.96 (4.50-5.90) M/uL Hgb 14.2 (13.0-17.0) g/dL Hct 45.7 (38.0-50.0) % MCV 92.1 (80.0-98.0) fL MCH 28.6 (27.0-32.0) pg MCHC 31.1 (31.0-37.0) g/dL RDW Std Deviation 51.5 (28.0-62.0) fl RDW Coeff of Bossman 15 (11.0-15.0) % Plt Count 117 L (150-400) K/uL MPV 9.90 (7.40-12.00) fL Neut % (Auto) 75.9 (48.0-80.0) % Lymph % (Auto) 13.8 L (16.0-40.0) % [place] % (Auto) 7.4 (0.0-15.0) % Eos % (Auto) 2.5 (0.0-7.0) % Baso % (Auto) 0.4 (0.0-1.5) % Neut # (Auto) 4.2 (1.4-5.7) K/uL Lymph # (Auto) 0.8 (0.6-2.4) K/uL [place] # (Auto) 0.4 (0.0-0.8) K/uL Eos # (Auto) 0.1 (0.0-0.7) K/uL Baso # (Auto) 0.0 (0.0-0.1) K/uL Nucleated RBC % 0.0 /100WBC Nucleated RBCs # 0 K/uL Sodium 141 (136-148) mmol/L Potassium 4.1 (3.5-5.1) mmol/L Chloride 102 (98-107) mmol/L Carbon Dioxide 37.5 H (21.0-32.0) mmol/L BUN 17 (7.0-18.0) mg/dL Creatinine 1.1 (0.8-1.3) mg/dL Est Cr Clr Drug Dosing 97.09 mL/min Estimated GFR (MDRD) > 60.0 ml/min Glucose 106 (74-106) mg/dL Calcium 7.9 L (8.5-10.1) mg/dL Magnesium 2.0 (1.8-2.4) mg/dL Abhi Results Last 24 Hours: Microbiology 04/14/19 21:00 Cryptosporidium/Giardia - Final Stool / Feces 04/14/19 21:00 Stool Culture - Final Stool / Feces NO SALMONELLA, SHIGELLA,OR E.COLI O157 ISOLATED Campylobacter Antigen Assay - Final NEGATIVE CAMPYLOBACTER AG REFERENCE RANGE: NEGATIVE Shiga Toxin I - Final NEGATIVE FOR SHIGA TOXIN 1 REFERENCE RANGE: NEGATIVE Shiga Toxin II - Final NEGATIVE FOR SHIGA TOXIN 2 REFERENCE RANGE: NEGATIVE Med Orders - Current: Current Medications Albuterol/Ipratropium (Duoneb 3.0-0.5 Mg/3 Ml) 3 ml NEB Q4HRRT PRN PRN Reason: Shortness Of Breath/wheezing Last Admin: 04/15/19 03:46 Dose: 3 ml Aspirin (Aspirin) 81 mg PO BEDTIME [facility] Last Admin: 04/15/19 21:39 Dose: 81 mg Atorvastatin Calcium (Lipitor) 40 mg PO BEDTIME [facility] Last Admin: 04/15/19 21:38 Dose: 40 mg Furosemide (Lasix) 60 mg IVPUSH TID [facility] Last Admin: 04/16/19 06:43 Dose: 60 mg Heparin Sodium (Porcine) (Heparin Sodium) 5,000 units SUBCUT Q8H [facility] Last Admin: 04/16/19 10:31 Dose: 5,000 units Sodium Chloride (Saline Flush) 10 ml FLUSH ASDIRECTED PRN PRN Reason: Keep Vein Open Sodium Chloride (Saline Flush) 2.5 ml FLUSH ASDIRECTED PRN PRN Reason: Keep Vein Open Discontinued Medications Furosemide (Lasix) 40 mg IVPUSH NOW ONE Stop: 04/14/19 16:28 Last Admin: 04/14/19 16:43 Dose: 40 mg Furosemide (Lasix) 40 mg IVPUSH TID [facility] Furosemide (Lasix) 40 mg IVPUSH TID [facility] Last Admin: 04/15/19 05:08 Dose: 40 mg Metoprolol Succinate (Toprol Xl) 50 mg PO DAILY [facility] Last Admin: 04/14/19 20:16 Dose: 50 mg - Exam General: Alert, Oriented Lungs: Clear to Auscultation, Normal Respiratory Effort Cardiovascular: Regular Rate, Regular Rhythm Extremities: Pedal Edema (+2 edema up to abdomen) Skin: Warm, Dry, Intact - Problem List Review Problem List Initiated/Reviewed/Updated: Yes - My Orders Last 24 Hours: My Active Orders 04/15/19 14:00 Furosemide [Lasix] 60 mg IVPUSH TID 04/17/19 05:11 BASIC METABOLIC PANEL,BMP [CHEM] AM CBC WITH AUTO DIFF [HEME] AM MAGNESIUM [CHEM] AM 04/18/19 05:11 BASIC METABOLIC PANEL,BMP [CHEM] AM CBC WITH AUTO DIFF [HEME] AM MAGNESIUM [CHEM] AM - Plan Plan:: 48 yo male admitted with anasarca. Echocardiogram report pending. Patient is down ten lbs today. We will continue with IV lasix TID and fluid restriction.
[2019-04-16] MEDS: Aspirin 81 MG Tab.Chew PO SCH (20:53)
[2019-04-16] MEDS: atorvaSTATin 40 MG Tab PO SCH (20:53)
[2019-04-17] MEDS: Heparin Sodium 5,000 Units/ML Vial SUBCUT SCH ×3 (01:52→17:48)
[2019-04-17 06:12] LABS: BLOOD UREA NITROGEN,BUN 15 mg/dL (7.0-18.0); CARBON DIOXIDE,CO2 40.6 mmol/L (21.0-32.0); CHLORIDE,CL 101 mmol/L (98-107); GLUCOSE RANDOM 127 mg/dL (74-106); POTASSIUM,K 3.4 mmol/L (3.5-5.1); SODIUM,NA 145 mmol/L (136-148)
[2019-04-17] MEDS: Furosemide 40 MG/4 ML VIAL IVPUSH SCH ×3 (06:31→21:55)
[2019-04-17] MEDS ORDERED: Potassium Chloride 20 MEQ Tab.ER PO SCH ×2 (08:21→17:00)
[2019-04-17] MEDS ORDERED: acetaZOLAMIDE 250 MG Tab PO ONE (10:07)
[2019-04-17] MEDS: Lisinopril 10 MG Tab PO SCH (10:30)
--- NOTE | 2019-04-17 11:59 | PCM.PN ---
- General Info Date of Service: 04/17/19 - Review of Systems Systems Review Comment:: shortness of breath improving. - Patient Data Vitals - Most Recent: Last Vital Signs Temp 36.3 C 04/17/19 07:49 Pulse 90 04/17/19 07:49 Resp 18 04/17/19 07:49 BP 155/86 H 04/17/19 10:30 Pulse Ox 92 L 04/17/19 07:49 Weight - Most Recent: 167.829 kg I&O - Last 24 Hours: Intake & Output 04/16/19 04/17/19 04/17/19 22:59 06:59 14:59 Intake Total 550 950 Output Total 3050 2600 2240 Balance -2500 -1650 -2240 Lab Results Last 24 Hours: Laboratory Results - last 24 hr 04/17/19 04/17/19 Range/Units 05:40 05:40 WBC 6.35 (4.0-11.0) K/uL RBC 4.95 (4.50-5.90) M/uL Hgb 13.8 (13.0-17.0) g/dL Hct 45.9 (38.0-50.0) % MCV 92.7 (80.0-98.0) fL MCH 27.9 (27.0-32.0) pg MCHC 30.1 L (31.0-37.0) g/dL RDW Std Deviation 51.1 (28.0-62.0) fl RDW Coeff of Bossman 15 (11.0-15.0) % Plt Count 181 (150-400) K/uL MPV 9.80 (7.40-12.00) fL Neut % (Auto) 75.3 (48.0-80.0) % Lymph % (Auto) 13.4 L (16.0-40.0) % Smyth % (Auto) 8.5 (0.0-15.0) % Eos % (Auto) 2.5 (0.0-7.0) % Baso % (Auto) 0.3 (0.0-1.5) % Neut # (Auto) 4.8 (1.4-5.7) K/uL Lymph # (Auto) 0.9 (0.6-2.4) K/uL Smyth # (Auto) 0.5 (0.0-0.8) K/uL Eos # (Auto) 0.2 (0.0-0.7) K/uL Baso # (Auto) 0.0 (0.0-0.1) K/uL Nucleated RBC % 0.0 /100WBC Nucleated RBCs # 0 K/uL Sodium 145 (136-148) mmol/L Potassium 3.4 L (3.5-5.1) mmol/L Chloride 101 (98-107) mmol/L Carbon Dioxide 40.6 H (21.0-32.0) mmol/L BUN 15 (7.0-18.0) mg/dL Creatinine 1.2 (0.8-1.3) mg/dL Est Cr Clr Drug Dosing 89.00 mL/min Estimated GFR (MDRD) > 60.0 ml/min Glucose 127 H (74-106) mg/dL Calcium 8.0 L (8.5-10.1) mg/dL Magnesium 1.8 (1.8-2.4) mg/dL Abhi Results Last 24 Hours: Microbiology 04/14/19 21:00 Cryptosporidium/Giardia - Final Stool / Feces 04/14/19 21:00 Stool Culture - Final Stool / Feces NO SALMONELLA, SHIGELLA,OR E.COLI O157 ISOLATED Campylobacter Antigen Assay - Final NEGATIVE CAMPYLOBACTER AG REFERENCE RANGE: NEGATIVE Shiga Toxin I - Final NEGATIVE FOR SHIGA TOXIN 1 REFERENCE RANGE: NEGATIVE Shiga Toxin II - Final NEGATIVE FOR SHIGA TOXIN 2 REFERENCE RANGE: NEGATIVE Med Orders - Current: Current Medications Albuterol/Ipratropium (Duoneb 3.0-0.5 Mg/3 Ml) 3 ml NEB Q4HRRT PRN PRN Reason: Shortness Of Breath/wheezing Last Admin: 04/15/19 03:46 Dose: 3 ml Aspirin (Aspirin) 81 mg PO BEDTIME [facility] Last Admin: 04/16/19 20:53 Dose: 81 mg Atorvastatin Calcium (Lipitor) 40 mg PO BEDTIME [facility] Last Admin: 04/16/19 20:53 Dose: 40 mg Furosemide (Lasix) 60 mg IVPUSH TID [facility] Last Admin: 04/17/19 06:31 Dose: 60 mg Heparin Sodium (Porcine) (Heparin Sodium) 5,000 units SUBCUT Q8H [facility] Last Admin: 04/17/19 10:22 Dose: 5,000 units Lisinopril (Prinivil) 10 mg PO DAILY [facility] Last Admin: 04/17/19 10:30 Dose: 10 mg Potassium Chloride (Klor-Con M20) 40 meq PO BIDMEALS [facility] Stop: 04/17/19 17:01 Sodium Chloride (Saline Flush) 10 ml FLUSH ASDIRECTED PRN PRN Reason: Keep Vein Open Sodium Chloride (Saline Flush) 2.5 ml FLUSH ASDIRECTED PRN PRN Reason: Keep Vein Open Discontinued Medications Acetazolamide (Diamox) 500 mg PO ONETIME ONE Stop: 04/17/19 10:08 Last Admin: 04/17/19 10:29 Dose: 500 mg Furosemide (Lasix) 40 mg IVPUSH NOW ONE Stop: 04/14/19 16:28 Last Admin: 04/14/19 16:43 Dose: 40 mg Furosemide (Lasix) 40 mg IVPUSH TID [facility] Furosemide (Lasix) 40 mg IVPUSH TID [facility] Last Admin: 04/15/19 05:08 Dose: 40 mg Metoprolol Succinate (Toprol Xl) 50 mg PO DAILY [facility] Last Admin: 04/14/19 20:16 Dose: 50 mg Potassium Chloride (Klor-Con M20) 40 meq PO TIDMEALS [facility] Stop: 04/17/19 17:31 Last Admin: 04/17/19 08:39 Dose: 40 meq - Exam General: Alert, Oriented Neck: Supple Lungs: Clear to Auscultation, Normal Respiratory Effort Cardiovascular: Regular Rate, Regular Rhythm Extremities: Pedal Edema (+2 edema up to abdomen) Skin: Warm, Dry, Intact - Problem List Review Problem List Initiated/Reviewed/Updated: Yes - My Orders Last 24 Hours: My Active Orders 04/18/19 05:11 BASIC METABOLIC PANEL,BMP [CHEM] AM BASIC METABOLIC PANEL,BMP [CHEM] AM CBC WITH AUTO DIFF [HEME] AM CBC WITH AUTO DIFF [HEME] AM MAGNESIUM [CHEM] AM 04/19/19 05:11 BASIC METABOLIC PANEL,BMP [CHEM] AM CBC WITH AUTO DIFF [HEME] AM - Plan Plan:: 48 yo male admitted with anasarca from acute systolic heart failure. Echocardiogram report showed decreased left ventricular systolic function wiht EF of 30%. We will continue TID lasix. We will start lisinopril. Will add diamox due to concerns of contraction alkalosis.
--- NOTE | 2019-04-17 18:03 | ECHO ---
The echocardiogram report can be seen in this patient's EMR (Electronic Medical Record) in the REPORTS section. The echocardiogram report has also been scanned into PACS and can be seen there as well. [facility]
[2019-04-17 20:03] LABS: BLOOD UREA NITROGEN,BUN 15 mg/dL (7.0-18.0); CARBON DIOXIDE,CO2 35.9 mmol/L (21.0-32.0); CHLORIDE,CL 103 mmol/L (98-107); GLUCOSE RANDOM 119 mg/dL (74-106); POTASSIUM,K 3.7 mmol/L (3.5-5.1); SODIUM,NA 145 mmol/L (136-148)
[2019-04-17] MEDS: atorvaSTATin 40 MG Tab PO SCH (20:46)
[2019-04-17] MEDS: Aspirin 81 MG Tab.Chew PO SCH (20:46)
[2019-04-18] MEDS: Heparin Sodium 5,000 Units/ML Vial SUBCUT SCH ×3 (02:11→18:08)
[2019-04-18] MEDS: Furosemide 40 MG/4 ML VIAL IVPUSH SCH ×3 (05:57→21:34)
[2019-04-18 06:38] LABS: CARBON DIOXIDE,CO2 35.1 mmol/L (21.0-32.0); POTASSIUM,K 3.7 mmol/L (3.5-5.1)
[2019-04-18] MEDS: Lisinopril 10 MG Tab PO SCH (10:55)
--- NOTE | 2019-04-18 12:17 | PCM.PN ---
- General Info Date of Service: 04/18/19 - Review of Systems Systems Review Comment:: shortness of breath improving, wanting to go home soon. - Patient Data Vitals - Most Recent: Last Vital Signs Temp 36.8 C 04/18/19 04:00 Pulse 100 04/18/19 04:00 Resp 17 04/18/19 04:00 BP 129/86 04/18/19 10:55 Pulse Ox 94 L 04/18/19 05:00 Weight - Most Recent: 164.2 kg I&O - Last 24 Hours: Intake & Output 04/17/19 04/18/19 04/18/19 22:59 06:59 14:59 Intake Total 100 500 Output Total 690 2010 Balance -590 -1510 Lab Results Last 24 Hours: Laboratory Results - last 24 hr 04/17/19 04/18/19 04/18/19 Range/Units 19:44 05:51 05:51 WBC 6.86 (4.0-11.0) K/uL RBC 5.02 (4.50-5.90) M/uL Hgb 14.1 (13.0-17.0) g/dL Hct 46.5 (38.0-50.0) % MCV 92.6 (80.0-98.0) fL MCH 28.1 (27.0-32.0) pg MCHC 30.3 L (31.0-37.0) g/dL RDW Std Deviation 51.5 (28.0-62.0) fl RDW Coeff of Bossman 15 (11.0-15.0) % Plt Count 189 (150-400) K/uL MPV 9.90 (7.40-12.00) fL Neut % (Auto) 76.1 (48.0-80.0) % Lymph % (Auto) 11.2 L (16.0-40.0) % [place] % (Auto) 9.3 (0.0-15.0) % Eos % (Auto) 3.1 (0.0-7.0) % Baso % (Auto) 0.3 (0.0-1.5) % Neut # (Auto) 5.2 (1.4-5.7) K/uL Lymph # (Auto) 0.8 (0.6-2.4) K/uL [place] # (Auto) 0.6 (0.0-0.8) K/uL Eos # (Auto) 0.2 (0.0-0.7) K/uL Baso # (Auto) 0.0 (0.0-0.1) K/uL Nucleated RBC % 0.0 /100WBC Nucleated RBCs # 0 K/uL Sodium 145 142 (136-148) mmol/L Potassium 3.7 3.7 (3.5-5.1) mmol/L Chloride 103 102 (98-107) mmol/L Carbon Dioxide 35.9 H 35.1 H (21.0-32.0) mmol/L BUN 15 15 (7.0-18.0) mg/dL Creatinine 1.2 1.3 (0.8-1.3) mg/dL Est Cr Clr Drug Dosing 89.00 82.59 mL/min Estimated GFR (MDRD) > 60.0 58.7 ml/min Glucose 119 H 133 H (74-106) mg/dL Calcium 8.7 8.2 L (8.5-10.1) mg/dL Magnesium 2.0 1.9 (1.8-2.4) mg/dL Med Orders - Current: Current Medications Albuterol/Ipratropium (Duoneb 3.0-0.5 Mg/3 Ml) 3 ml NEB Q4HRRT PRN PRN Reason: Shortness Of Breath/wheezing Last Admin: 04/15/19 03:46 Dose: 3 ml Aspirin (Aspirin) 81 mg PO BEDTIME [facility] Last Admin: 04/17/19 20:46 Dose: 81 mg Atorvastatin Calcium (Lipitor) 40 mg PO BEDTIME [facility] Last Admin: 04/17/19 20:46 Dose: 40 mg Furosemide (Lasix) 60 mg IVPUSH TID [facility] Last Admin: 04/18/19 05:57 Dose: 60 mg Heparin Sodium (Porcine) (Heparin Sodium) 5,000 units SUBCUT Q8H [facility] Last Admin: 04/18/19 10:55 Dose: 5,000 units Lisinopril (Prinivil) 10 mg PO DAILY [facility] Last Admin: 04/18/19 10:55 Dose: 10 mg Sodium Chloride (Saline Flush) 10 ml FLUSH ASDIRECTED PRN PRN Reason: Keep Vein Open Sodium Chloride (Saline Flush) 2.5 ml FLUSH ASDIRECTED PRN PRN Reason: Keep Vein Open Discontinued Medications Acetazolamide (Diamox) 500 mg PO ONETIME ONE Stop: 04/17/19 10:08 Last Admin: 04/17/19 10:29 Dose: 500 mg Furosemide (Lasix) 40 mg IVPUSH NOW ONE Stop: 04/14/19 16:28 Last Admin: 04/14/19 16:43 Dose: 40 mg Furosemide (Lasix) 40 mg IVPUSH TID RICARDO Furosemide (Lasix) 40 mg IVPUSH TID [facility] Last Admin: 04/15/19 05:08 Dose: 40 mg Metoprolol Succinate (Toprol Xl) 50 mg PO DAILY [facility] Last Admin: 04/14/19 20:16 Dose: 50 mg Potassium Chloride (Klor-Con M20) 40 meq PO TIDMEALS [facility] Stop: 04/17/19 17:31 Last Admin: 04/17/19 08:39 Dose: 40 meq Potassium Chloride (Klor-Con M20) 40 meq PO BIDMEALS [facility] Stop: 04/17/19 17:01 Last Admin: 04/17/19 17:49 Dose: 40 meq - Exam General: Alert, Oriented Neck: Supple Lungs: Clear to Auscultation, Normal Respiratory Effort Cardiovascular: Regular Rate, Regular Rhythm Extremities: Pedal Edema (+2 edema up to abdomen) Skin: Warm, Dry, Intact Neurological: No New Focal Deficit - Problem List Review Problem List Initiated/Reviewed/Updated: Yes - My Orders Last 24 Hours: My Active Orders 04/19/19 05:11 BASIC METABOLIC PANEL,BMP [CHEM] AM CBC WITH AUTO DIFF [HEME] AM - Plan Plan:: 48 yo male admitted with anasarca from acute systolic heart failure. Echocardiogram report showed decreased left ventricular systolic function with EF of 30%. We will continue TID lasix, lisinopril, and diamox. Still requiring oxygen with exertion and at night.
[2019-04-18] MEDS: atorvaSTATin 40 MG Tab PO SCH (20:00)
[2019-04-18] MEDS: Aspirin 81 MG Tab.Chew PO SCH (20:00)
[2019-04-19] MEDS: Heparin Sodium 5,000 Units/ML Vial SUBCUT SCH (01:41)
[2019-04-19] MEDS: Furosemide 40 MG/4 ML VIAL IVPUSH SCH (05:57)
[2019-04-19 07:22] LABS: BLOOD UREA NITROGEN,BUN 18 mg/dL (7.0-18.0); CARBON DIOXIDE,CO2 34.7 mmol/L (21.0-32.0); CHLORIDE,CL 103 mmol/L (98-107); GLUCOSE RANDOM 105 mg/dL (74-106); POTASSIUM,K 3.6 mmol/L (3.5-5.1); SODIUM,NA 141 mmol/L (136-148)
--- NOTE | 2019-04-19 07:54 | PCM.DCSUM1 ---
Discharge Summary - Hospital Course HPI Initial Comments: The patient was admitted secondary to anasarca, heart failure and shortness of breath. Diagnosis: Stroke: No - Discharge Data Discharge Date: 04/19/19 Discharge Disposition: Home, Self-Care 01 Condition: Fair - Referral to Home Health Primary Care Physician: PCP Unknown - Patient Summary/Data Consults: Consultations 04/14/19 18:21 Consult to [facility] [CONS] Routine Hospital Course: The patient is an otherwise healthy 58-year-old gentleman who has no past medical history had presented to the emergency department out of concern for abdominal pain. The patient had been seen in the urgent care clinic and the patient had been admitted out of concern for anasarca, dyspnea on exertion and orthopnea. The patient was found to have new onset congestive heart failure. The patient was started on lisinopril for his blood pressure control as well as heart failure. The patient was also aggressively diuresed. On April 15, 2019 the patient had a 2-D echocardiogram which showed that he had left ventricular ejection fraction by visual estimate of 30-35%. Was also noted to have moderately to severely decreased left ventricular systolic function. On initial presentation the patient's weight was noted to be at 176 kg. By day of discharge with diuresis this had improved to 160 kg. The patient's respiration had improved back to baseline and he did not require oxygen support. On initial presentation the patient had a B-type natriuretic peptide was elevated at 488 pg /mL. By day of discharge the patient's the patient had diuresed a total of approximately 15 L of fluid. The patient had been discharged on Lipitor 40 mg by mouth daily at bedtime, Lasix 40 mg by mouth daily, potassium citrate 15 mEq by mouth daily. He is also have 81 mg aspirin by mouth daily. The patient also has been recommended to follow-up with cardiology as well as his primary care physician. He is also been discharged on a heart healthy diet with fluid restriction of 2 L per day. He is also to be on a low-sodium diet. The patient is also to have activity as tolerated. He has been hemodynamically stable and and he has been discharged from acute hospitalization with recommendations above. - Patient Instructions Diet: Heart Healthy Diet, Low Sodium Fluid Restriction: 2000 mL - Discharge Plan *PRESCRIPTION DRUG MONITORING PROGRAM REVIEWED*: No *COPY OF PRESCRIPTION DRUG MONITORING REPORT IN PATIENT MARCELLO: No Prescriptions/Med Rec: atorvaSTATin [Lipitor] 40 mg PO BEDTIME #30 tablet Furosemide [Lasix] 40 mg PO DAILY #30 tab Lisinopril [Prinivil] 10 mg PO DAILY #30 tablet Potassium Citrate [Potassium Citrate ER] 15 meq PO DAILY #30 tablet.er Home Medications: Home Meds Aspirin 81 mg PO BEDTIME tab.chew 04/19/19 [Rx] Furosemide [Lasix] 40 mg PO DAILY #30 tab 04/19/19 [Rx] Lisinopril [Prinivil] 10 mg PO DAILY #30 tablet 04/19/19 [Rx] Potassium Citrate [Potassium Citrate ER] 15 meq PO DAILY #30 tablet.er 04/19/19 [Rx] atorvaSTATin [Lipitor] 40 mg PO BEDTIME #30 tablet 04/19/19 [Rx] Patient Handouts: Furosemide tablets, Potassium Citrate Extended-Release Tablets, Atorvastatin tablets, Lisinopril tablets, Heart Failure Referrals: [facility] [Outside] Morenita Mcadams MD [Physician] - 05/21/19 3:00 pm Silva Perea NP [Nurse Practitioner] - 04/24/19 3:30 pm - Discharge Summary/Plan Comment DC Time >30 min.: Yes - General Info Date of Service: 04/19/19 Admission Dx/Problem (Free Text: Admission Diagnosis/Problem Admission Diagnosis/Problem Congestive heart failure, systolic, reduced ejection fraction 30-35% Subjective Update: The patient is doing better today. He feels like he can go home. He is denied any pain or shortness of breath. Functional Status: Reports: Pain Controlled - Review of Systems General: Reports: No Symptoms HEENT: Reports: No Symptoms Pulmonary: Reports: No Symptoms Cardiovascular: Reports: No Symptoms Gastrointestinal: Reports: No Symptoms Genitourinary: Reports: No Symptoms Musculoskeletal: Reports: No Symptoms Skin: Reports: No Symptoms Neurological: Reports: No Symptoms Psychiatric: Reports: No Symptoms - Patient Data Vitals - Most Recent: Last Vital Signs Temp 36.4 C 04/19/19 07:43 Pulse 91 04/19/19 07:43 Resp 18 04/19/19 07:43 BP 134/84 04/19/19 07:43 Pulse Ox 89 L 04/19/19 07:43 Weight - Most Recent: 160.662 kg I&O - Last 24 hours: Intake & Output 04/18/19 04/19/19 04/19/19 22:59 06:59 14:59 Intake Total 500 650 Output Total 2390 2200 Balance -1890 -1550 Lab Results - Last 24 hrs: Laboratory Results - last 24 hr 04/19/19 04/19/19 Range/Units 06:55 06:55 WBC 6.37 (4.0-11.0) K/uL RBC 5.14 (4.50-5.90) M/uL Hgb 14.3 (13.0-17.0) g/dL Hct 46.7 (38.0-50.0) % MCV 90.9 (80.0-98.0) fL MCH 27.8 (27.0-32.0) pg MCHC 30.6 L (31.0-37.0) g/dL RDW Std Deviation 50.1 (28.0-62.0) fl RDW Coeff of Bossman 15 (11.0-15.0) % Plt Count 167 (150-400) K/uL MPV 9.30 (7.40-12.00) fL Neut % (Auto) 74.2 (48.0-80.0) % Lymph % (Auto) 12.2 L (16.0-40.0) % [place] % (Auto) 10.2 (0.0-15.0) % Eos % (Auto) 3.1 (0.0-7.0) % Baso % (Auto) 0.3 (0.0-1.5) % Neut # (Auto) 4.7 (1.4-5.7) K/uL Lymph # (Auto) 0.8 (0.6-2.4) K/uL [place] # (Auto) 0.7 (0.0-0.8) K/uL Eos # (Auto) 0.2 (0.0-0.7) K/uL Baso # (Auto) 0.0 (0.0-0.1) K/uL Nucleated RBC % 0.0 /100WBC Nucleated RBCs # 0 K/uL Sodium 141 (136-148) mmol/L Potassium 3.6 (3.5-5.1) mmol/L Chloride 103 (98-107) mmol/L Carbon Dioxide 34.7 H (21.0-32.0) mmol/L BUN 18 (7.0-18.0) mg/dL Creatinine 1.2 (0.8-1.3) mg/dL Est Cr Clr Drug Dosing 89.47 mL/min Estimated GFR (MDRD) > 60.0 ml/min Glucose 105 (74-106) mg/dL Calcium 8.6 (8.5-10.1) mg/dL Med Orders - Current: Current Medications Albuterol/Ipratropium (Duoneb 3.0-0.5 Mg/3 Ml) 3 ml NEB Q4HRRT PRN PRN Reason: Shortness Of Breath/wheezing Last Admin: 04/15/19 03:46 Dose: 3 ml Aspirin (Aspirin) 81 mg PO BEDTIME [facility] Last Admin: 04/18/19 20:00 Dose: 81 mg Atorvastatin Calcium (Lipitor) 40 mg PO BEDTIME [facility] Last Admin: 04/18/19 20:00 Dose: 40 mg Furosemide (Lasix) 60 mg IVPUSH TID [facility] Last Admin: 04/19/19 05:57 Dose: 60 mg Heparin Sodium (Porcine) (Heparin Sodium) 5,000 units SUBCUT Q8H [facility] Last Admin: 04/19/19 01:41 Dose: 5,000 units Lisinopril (Prinivil) 10 mg PO DAILY [facility] Last Admin: 04/18/19 10:55 Dose: 10 mg Sodium Chloride (Saline Flush) 10 ml FLUSH ASDIRECTED PRN PRN Reason: Keep Vein Open Sodium Chloride (Saline Flush) 2.5 ml FLUSH ASDIRECTED PRN PRN Reason: Keep Vein Open Discontinued Medications Acetazolamide (Diamox) 500 mg PO ONETIME ONE Stop: 04/17/19 10:08 Last Admin: 04/17/19 10:29 Dose: 500 mg Furosemide (Lasix) 40 mg IVPUSH NOW ONE Stop: 04/14/19 16:28 Last Admin: 04/14/19 16:43 Dose: 40 mg Furosemide (Lasix) 40 mg IVPUSH TID [facility] Furosemide (Lasix) 40 mg IVPUSH TID [facility] Last Admin: 04/15/19 05:08 Dose: 40 mg Metoprolol Succinate (Toprol Xl) 50 mg PO DAILY [facility] Last Admin: 04/14/19 20:16 Dose: 50 mg Potassium Chloride (Klor-Con M20) 40 meq PO TIDMEALS [facility] Stop: 04/17/19 17:31 Last Admin: 04/17/19 08:39 Dose: 40 meq Potassium Chloride (Klor-Con M20) 40 meq PO BIDMEALS [facility] Stop: 04/17/19 17:01 Last Admin: 04/17/19 17:49 Dose: 40 meq - Exam Quality Assessment: Denies: Supplemental Oxygen General: Reports: Alert, Oriented, Cooperative, No Acute Distress HEENT: Reports: Pupils Equal, Pupils Reactive, EOMI, Mucous Membr. Moist/[place] Neck: Reports: Supple, Trachea Midline. Denies: No JVD (Unable to evaluate secondary to the patient's body habitus.) Lungs: Reports: Clear to Auscultation, Normal Respiratory Effort Cardiovascular: Reports: Regular Rate, Regular Rhythm GI/Abdominal Exam: Normal Bowel Sounds, Soft, Non-Tender, No Distention Back Exam: Reports: Normal Inspection Extremities: Normal Inspection, No Pedal Edema Skin: Reports: Warm, Dry, Intact Neurological: Reports: No New Focal Deficit, Normal Gait Psy/Mental Status: Reports: Alert, Normal Affect, Normal Mood
[2019-04-19] MEDS: Lisinopril 10 MG Tab PO SCH (08:13)
== END 2019-04-19 10:30 | disposition home or self-care (01) | DRG 194 ==
LOC: EDBD 14:49 → MW.ED 14:49 → MW.ICU 14:52 → UNDOADMOB 18:38 → OBSVTOIN 18:38 → INTOOBSV 18:38 → MW.MS 04-18 16:31
PROVIDERS: ADMIT Student in an Organized Health Care Education/Training Program; ATTEND Student in an Organized Health Care Education/Training Program
PROC: 5A09357 Assistance with Respiratory Ventilation, Less than 24 Consecutive Hours, Continuous Positive Airway Pressure (ICD-10-PCS; principal; 2019-04-16)
DX: I11.0 Hypertensive heart disease with heart failure (principal); I50.21 Acute systolic (congestive) heart failure; J96.91 Respiratory failure, unspecified with hypoxia; E87.3 Alkalosis; Z68.41 Body mass index [BMI] 40.0-44.9, adult; K59.00 Constipation, unspecified; N17.9 Acute kidney failure, unspecified; F17.210 Nicotine dependence, cigarettes, uncomplicated; E66.9 Obesity, unspecified; Z71.6 Tobacco abuse counseling; Z91.09 Other allergy status, other than to drugs and biological substances; Z79.82 Long term (current) use of aspirin; Z79.899 Other long term (current) drug therapy
CPT/HCPCS: 36415; 71045; 71045-26; 80048; 80053; 80061; 81001; 82140; 82150; 82962; 83036; 83690; 83735; 83880; 84100; 84443; 84484; 85025; 85610; 87046; 87324; 87328; 87329; 87899; 93005; 93306; 94660; 96374; 99285; 99285-25; A9270-GY; J1644; J1940; J7620-GY

== ENCOUNTER 2020-08-03 08:43 | Emergency (ER) | payer BC ==
--- NOTE | 2020-08-03 08:48 | EDM.PDOC ---
ED HPI GENERAL MEDICAL PROBLEM - General Stated Complaint: shortness of breath Time Seen by Provider: 08/03/20 08:44 Source of Information: Reports: Patient, Provider History Limitations: Reports: No Limitations - History of Present Illness INITIAL COMMENTS - FREE TEXT/NARRATIVE: 50-year-old male with history of HFrEF (30-35% on 04/2019), CAD, HTN, HLD, VINNIE with CPAP presents with hypoxia and dyspnea. He ran out of his Lasix for about a week and admits to feeling short of breath, dyspnea on exertion, orthopnea, decreased urine output for 1 week, today he went to the [facility] for medication refills for his Lasix and was found to be satting at 78% on room air and was referred here. He denies fever, chills, chest pain, cough, abdominal pain. He states he normally takes Lasix 60 mg at night. At triage he was satting 85% on room air, improved to 92% on 4 L. He still smokes cigarettes regularly. He was tested positive for COVID on 05/10/20. ROS: A 10-point review of systems, other than pertinent positives and negatives as stated per HPI, is otherwise negative Past medical history: No additional pertinent history Past Surgical history: No additional pertinent history Social history: No additional pertinent history Family history: No additional pertinent history PHYSICAL EXAM General: AOx4, GCS = 15, BMI 33.7, No distress HEENT: dry mucous membrane Neck: supple, no meningismus, no kernig or Brudzinski Cardiac: S1S2 RRR, no JVD, no pedal edema Respiratory: CTAB, no crackles or rales, no wheezing Abdomen: Soft, nontender, no rebound or guarding, nondistended, no pulsatile mass. Back: nontender Musculoskeletal: NVI distally, no deformity Neuro: No focal deficits, CN 2 - 12 WNL. - Related Data Allergies Allergy/AdvReac Type Severity Reaction Status Date / Time cat dander Allergy Mild Rash Verified 08/03/20 09:14 horse dander Allergy Mild Rash Verified 08/03/20 09:14 Home Meds: Home Meds Aspirin 81 mg PO BEDTIME tab.chew 04/19/19 [Rx] Furosemide [Lasix] 40 mg PO DAILY #30 tab 04/19/19 [Rx] Potassium Citrate [Potassium Citrate ER] 15 meq PO DAILY #30 tablet.er 04/19/19 [Rx] atorvaSTATin [Lipitor] 40 mg PO BEDTIME #30 tablet 04/19/19 [Rx] lisinopriL [Prinivil] 10 mg PO DAILY #30 tablet 04/19/19 [Rx] Furosemide [Lasix] 60 mg PO DAILY #45 tab 08/03/20 [Rx] Past Medical History Endocrine/Metabolic History: Reports: Obesity/BMI 30+ Social & Family History - Family History Family Medical History: No Pertinent Family History - Caffeine Use Caffeine Use: Reports: Energy Drinks ED ROS GENERAL - Review of Systems Review Of Systems: See Below (see dictation) ED EXAM, GENERAL - Physical Exam Exam: See Below (see dictation) #1 Interpretation EKG Interpretation Comments: Heart rate = 87 bpm, normal sinus rhythm, QTc 503ms, normal QRS interval, no STEMI. EKG and rhythm strip interpreted by me at 0848 Course - Vital Signs Last Recorded V/S: Last Vital Signs Temp 96.9 F 08/03/20 08:53 Pulse 79 08/03/20 10:04 Resp 17 08/03/20 10:04 BP 159/96 H 08/03/20 10:04 Pulse Ox 94 L 08/03/20 10:04 - Orders/Labs/Meds Orders: Active Orders 24 hr Category Date Time Status Cardiac Monitoring [RC] . DIRECTED Care 08/03/20 08:51 Active EKG 12 Lead [EKG Documentation Completion] [RC] STAT Care 08/03/20 08:51 Active Oxygen Therapy Adult [Oxygen Therapy, ED] [RC] Care 08/03/20 08:53 Active ASDIRECTED Pulse Oximetry Continuous Monitoring [OM.PC] CONTINUOUS Oth 08/03/20 08:52 Ordered Labs: Laboratory Tests 08/03/20 08/03/20 08/03/20 Range/Units 09:03 09:03 09:03 WBC 7.58 (4.0-11.0) K/uL RBC 5.48 (4.50-5.90) M/uL Hgb 15.8 (13.0-17.0) g/dL Hct 51.9 H (38.0-50.0) % MCV 94.7 (80.0-98.0) fL MCH 28.8 (27.0-32.0) pg MCHC 30.4 L (31.0-37.0) g/dL RDW Std Deviation 52.8 (28.0-62.0) fl RDW Coeff of Bossman 15 (11.0-15.0) % Plt Count 196 (150-400) K/uL MPV 9.90 (7.40-12.00) fL Neut % (Auto) 78.5 (48.0-80.0) % Lymph % (Auto) 11.5 L (16.0-40.0) % [place] % (Auto) 6.9 (0.0-15.0) % Eos % (Auto) 2.8 (0.0-7.0) % Baso % (Auto) 0.3 (0.0-1.5) % Neut # (Auto) 6.0 H (1.4-5.7) K/uL Lymph # (Auto) 0.9 (0.6-2.4) K/uL [place] # (Auto) 0.5 (0.0-0.8) K/uL Eos # (Auto) 0.2 (0.0-0.7) K/uL Baso # (Auto) 0.0 (0.0-0.1) K/uL Nucleated RBC % 0.0 /100WBC Nucleated RBCs # 0 K/uL Lactate 1.4 (0.20-2.00) mmol/L Sodium 143 (136-148) mmol/L Potassium 4.0 (3.5-5.1) mmol/L Chloride 105 (98-107) mmol/L Carbon Dioxide 35.1 H (21.0-32.0) mmol/L BUN 15 (7.0-18.0) mg/dL Creatinine 1.3 (0.8-1.3) mg/dL Est Cr Clr Drug Dosing 80.35 mL/min Estimated GFR (MDRD) 58.2 ml/min Glucose 110 H (74-106) mg/dL Calcium 8.5 (8.5-10.1) mg/dL Total Bilirubin 0.5 (0.2-1.0) mg/dL AST 22 (15-37) IU/L ALT 31 (14-63) IU/L Alkaline Phosphatase 144 H (46-116) U/L Troponin I < 0.050 (0.000-0.056) ng/mL B-Natriuretic Peptide (<100) PG/ML Total Protein 7.0 (6.4-8.2) g/dL Albumin 3.1 L (3.4-5.0) g/dL Globulin 3.9 (2.6-4.0) g/dL Albumin/Globulin Ratio 0.8 L (0.9-1.6) 08/03/20 Range/Units 09:03 WBC (4.0-11.0) K/uL RBC (4.50-5.90) M/uL Hgb (13.0-17.0) g/dL Hct (38.0-50.0) % MCV (80.0-98.0) fL MCH (27.0-32.0) pg MCHC (31.0-37.0) g/dL RDW Std Deviation (28.0-62.0) fl RDW Coeff of Bossman (11.0-15.0) % Plt Count (150-400) K/uL MPV (7.40-12.00) fL Neut % (Auto) (48.0-80.0) % Lymph % (Auto) (16.0-40.0) % [place] % (Auto) (0.0-15.0) % Eos % (Auto) (0.0-7.0) % Baso % (Auto) (0.0-1.5) % Neut # (Auto) (1.4-5.7) K/uL Lymph # (Auto) (0.6-2.4) K/uL [place] # (Auto) (0.0-0.8) K/uL Eos # (Auto) (0.0-0.7) K/uL Baso # (Auto) (0.0-0.1) K/uL Nucleated RBC % /100WBC Nucleated RBCs # K/uL Lactate (0.20-2.00) mmol/L Sodium (136-148) mmol/L Potassium (3.5-5.1) mmol/L Chloride (98-107) mmol/L Carbon Dioxide (21.0-32.0) mmol/L BUN (7.0-18.0) mg/dL Creatinine (0.8-1.3) mg/dL Est Cr Clr Drug Dosing mL/min Estimated GFR (MDRD) ml/min Glucose (74-106) mg/dL Calcium (8.5-10.1) mg/dL Total Bilirubin (0.2-1.0) mg/dL AST (15-37) IU/L ALT (14-63) IU/L Alkaline Phosphatase (46-116) U/L Troponin I (0.000-0.056) ng/mL B-Natriuretic Peptide 78 (<100) PG/ML Total Protein (6.4-8.2) g/dL Albumin (3.4-5.0) g/dL Globulin (2.6-4.0) g/dL Albumin/Globulin Ratio (0.9-1.6) Meds: Medications Discontinued Medications Generic Name Dose Route Start Last Admin Trade Name Freq PRN Reason Stop Dose Admin Furosemide 40 mg 08/03/20 10:13 08/03/20 10:22 Lasix IVPUSH 08/03/20 10:14 40 mg NOW ONE Administration Nitroglycerin 0.4 mg 08/03/20 10:15 08/03/20 10:22 Nitrostat SL 08/03/20 10:16 Not Given ONETIME ONE - Re-Assessments/Exams Free Text/Narrative Re-Assessment/Exam: 08/03/20 10:24 Patient given IV Lasix 40 mg in the ER, he is requesting to have his Lasix refilled. Patient is choosing to leave against medical advice. I personally explained to the patient that choosing to do so may result in permanent bodily harm or . I discussed at great length that without further evaluation and monitoring there may be unforeseen circumstances and deterioration causing permanent bodily harm or as a result of their choice. The patient is alert, oriented, and competent at this time. The patient states that they are aware of the serious risks as explained, but they still choose to leave against medical advice. The patient is aware that they did not allow us to complete their evaluation, and there is still the possibility that an emergency condition could exist. This has been thoroughly explained to the patient and the patient has indicated your understanding of such. The patient is assuming all risk and liability for such a condition, or for such a condition subsequently developing. The patient is doing so at their own free will, with a full knowledge of the potential consequences of these actions. The patient was encouraged to return at any time should they experience any changes about evaluation, or should they develop any new or worsening symptoms that concerns them. MEDICAL DECISION MAKING: I reviewed the patients past medical records, lab and radiographic findings. I discussed the case with the patient. My differential diagnosis included: CHF, medication noncompliance, sleep apnea. I offered patient admission when he was satting greater than 92% on 4 L, with normal mentation, he declined to be admitted despite my recommendation. He was signed out AGAINST MEDICAL ADVICE. Departure - Departure Time of Disposition: 10:26 Disposition: Against Medical Advice 07 Condition: Serious Clinical Impression: Congestive heart failure, Hypoxia, Obstructive sleep apnea, Left against medical advice - Discharge Information *PRESCRIPTION DRUG MONITORING PROGRAM REVIEWED*: Not Applicable *COPY OF PRESCRIPTION DRUG MONITORING REPORT IN PATIENT MARCELLO: Not Applicable Prescriptions: Furosemide [Lasix] 60 mg PO DAILY #45 tab Instructions: Hypoxia, Sleep Apnea, Steps to Quit Smoking, [id number], Heart Failure Exacerbation Referrals: Morenita Mcadams MD [Physician] - 3 Days Forms: Refusal of Care AMA Additional Instructions: The need for follow-up, as well as the timing and circumstances, are variable depending upon the specifics of your emergency department visit. If you don't have a primary care physician on staff, we will provide you with a referral. We always advise you to contact your personal physician following an emergency department visit to inform them of the circumstance of the visit and for follow-up with them and/or the need for any referrals to a consulting specialist. The emergency department will also refer you to a specialist when appropriate. This referral assures that you have the opportunity for follow-up care with a specialist. All of these measure are taken in an effort to provide you with optimal care, which includes your follow-up. Under all circumstances we always encourage you to contact your private physician who remains a resource for coordinating your care. When calling for follow-up care, please make the office aware that this follow-up is from your recent emergency room visit. If for any reason you are refused follow-up, please contact the [facility] Emergency Department at and asked to speak to the emergency department charge nurse. If you do not have a primary care doctor, please follow up with the clinics below within 3-5 days. [facility] - Primary Care [address] [place] [address] [facility] [address] [place] [address] Critical Care Note - Critical Care Note Comments: CRITCAL CARE: The high probability of sudden, clinically significant deterioration in the patient's condition required the highest level of my preparedness to intervene urgently. The services I provided to this patient were to treat and/or prevent clinically significant deterioration. Services included the following: chart data review, reviewing nursing notes and/or old charts, documentation time, inbound sales consultant collaboration regarding findings and treatment options, medication orders and management, direct patient care, vital sign assessments and ordering, interpreting and reviewing diagnostic studies/lab tests. Aggregate critical care time includes only time during which I was engaged in work directly related to the patient's care, as described above, whether at the bedside or elsewhere in the Emergency Department. It did not include time spent performing other reported procedures or the services of residents, students, nurses or physician assistants. Frequent interventions and/or frequent repeat evaluations were required as well as counseling and coordination of care regarding prognosis, treatments, and discussions with patient, staff and consultants. Critical Care (excluding other procedures): 40 minutes Sepsis Event Note (ED) - Focused Exam Vital Signs: Vital Signs Temp Pulse Resp BP Pulse Ox Pulse Ox 08/03/20 10:04 79 17 159/96 H 94 L 08/03/20 09:49 87 18 153/85 H 93 L 08/03/20 09:34 63 19 158/89 H 93 L 08/03/20 09:19 70 19 154/72 H 94 L 08/03/20 08:58 92 L 08/03/20 08:56 83 168/92 H 88 L 08/03/20 08:53 96.9 F 91 19 181/108 H 85 L 92 L - My Orders Last 24 Hours: My Active Orders 08/03/20 08:51 Cardiac Monitoring [RC] . DIRECTED EKG 12 Lead [EKG Documentation Completion] [RC] STAT 08/03/20 08:52 Pulse Oximetry Continuous Monitoring [OM.PC] CONTINUOUS 08/03/20 08:53 Oxygen Therapy Adult [Oxygen Therapy, ED] [RC] ASDIRECTED - Assessment/Plan Last 24 Hours: My Active Orders 08/03/20 08:51 Cardiac Monitoring [RC] . DIRECTED EKG 12 Lead [EKG Documentation Completion] [RC] STAT 08/03/20 08:52 Pulse Oximetry Continuous Monitoring [OM.PC] CONTINUOUS 08/03/20 08:53 Oxygen Therapy Adult [Oxygen Therapy, ED] [RC] ASDIRECTED
--- NOTE | 2020-08-03 09:38 | CR ---
INDICATION: chest pain TECHNIQUE: Chest 1 view. COMPARISON: 04/15/19 FINDINGS: Cardiovascular and mediastinum: Heart size upper limits of normal. Mediastinum is within normal limits. Lungs and pleural space: Lungs are clear. No sign of infiltrate or mass. No sign of pleural effusion. No pneumothorax. Bones and soft tissues: No significant findings. IMPRESSION: Unremarkable chest. Dictated by: Sanket Mcfarland MD @ 08/03/2020 09:37:02 (Electronically Signed)
[2020-08-03 09:46] LABS: BLOOD UREA NITROGEN,BUN 15 mg/dL (7.0-18.0); CARBON DIOXIDE,CO2 35.1 mmol/L (21.0-32.0); CHLORIDE,CL 105 mmol/L (98-107); GLUCOSE RANDOM 110 mg/dL (74-106); SODIUM,NA 143 mmol/L (136-148)
[2020-08-03] MEDS ORDERED: Furosemide 40 MG/4 ML VIAL IVPUSH ONE (10:13)
[2020-08-03] MEDS ORDERED: Nitroglycerin 0.4 MG Tab.SL SL ONE (10:15)
== END 2020-08-03 10:43 | disposition left against medical advice (07) ==
LOC: MW.ED 08:43
DX: I11.0 Hypertensive heart disease with heart failure (principal); I50.9 Heart failure, unspecified; R09.02 Hypoxemia; G47.33 Obstructive sleep apnea (adult) (pediatric); I25.10 Atherosclerotic heart disease of native coronary artery without angina pectoris; F17.210 Nicotine dependence, cigarettes, uncomplicated; E66.9 Obesity, unspecified; Z68.33 Body mass index [BMI] 33.0-33.9, adult; Z86.16 Personal history of COVID-19; Z91.048 Other nonmedicinal substance allergy status; Z79.82 Long term (current) use of aspirin; Z79.899 Other long term (current) drug therapy
CPT/HCPCS: 36415; 71045; 80053; 83605; 83880; 84484; 85025; 93005; 96374; 99291; J1940; 93010